=== PATIENT | male | born 1955 | race Caucasian/White ===

== ENCOUNTER 2023-12-07 13:10 | Emergency (ER) | payer MEDICARE, MEDICAID, SELFPAY ==
[2023-12-07 13:14] VITALS: BP 141/78; PULSE 86; RESP 16; TEMP 36.5; O2SAT 98; BMI 28.7
--- NOTE | 2023-12-07 13:22 | DI.RAD.S_ITS ---
PROCEDURE: XR SHOULDER RT MIN 2V INDICATIONS: fall/pain/swelling TECHNIQUE: 2 views of the shoulder were acquired. COMPARISON: [facility], CR, XR RIBS LT MIN 3V W CXR1V, 12/07/2023, 13:42. [facility], CR, XR HUMERUS RT 2V, 12/07/2023, 15:08. FINDINGS: Bones: There is a complex, comminuted fracture of the right proximal humeral shaft, with [id number] displacement. No shoulder dislocation is seen. The visualized ribs appear intact. Age-appropriate bony degenerative changes are seen. Soft tissues: Calcific tendinopathy can be seen. IMPRESSION: Right humeral shaft fracture. Dictated by: Nando Fields M.D. on 12/07/2023 at 15:38 Approved by: Nando Fields M.D. on 12/07/2023 at 15:39
--- NOTE | 2023-12-07 13:28 | DI.RAD.S_ITS ---
PROCEDURE: XR RIBS LT MIN 3V W CXR1V INDICATIONS: fall/pain TECHNIQUE: 3 views of the ribs were acquired, along with a single view chest. COMPARISON: [facility], CR, XR HUMERUS RT 2V, 12/07/2023, 15:08. [facility], CR, XR SHOULDER RT MIN 2V, 12/07/2023, 13:42. FINDINGS: Surgical changes and devices: The cardiac contours are within normal limits. The aorta demonstrates calcification and tortuosity. Bones and chest wall: No fractures or dislocations. No suspicious bony lesions. Age-appropriate bony degenerative changes are seen. Overlying soft tissues appear unremarkable. Lungs and pleura: No pleural effusions or pneumothorax. Lungs appear clear. Mediastinum: Mediastinal contours appear normal. Heart size is normal. IMPRESSION: No displaced rib fracture or pneumothorax. If there is strong clinical concern for chest trauma in this patient, please consider a follow-up chest CT with IV contrast for further evaluation. Dictated by: Nando Fields M.D. on 12/07/2023 at 15:37 Approved by: Nando Fields M.D. on 12/07/2023 at 15:38
--- NOTE | 2023-12-07 13:41 | ED_ITS ---
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 At 3:00 a.m. this morning he went to go the bathroom and so and had left a towel on the floor in his feet got tangled up in it. He fell forward posting his right arm outwards. He has not on any blood thinners. No loss of consciousness. Denies any other pain or injury. Patient is right-handed. Patient is retired. Patient placed in the sling. Shoulders to fingers exposed. No numbness tingling or weakness. No complaints of pain at the elbow forearm wrist or hand. Related Data Previous Rx's Medication Instructions Recorded ondansetron 4 mg disintegrating 4 mg PO Q8H PRN nausea and 12/07/23 tablet vomiting #20 tabs oxycodone-acetaminophen 5 mg-325 1 tab PO Q4-6H PRN pain #20 tabs 12/07/23 mg tablet (Percocet) Allergies Allergy/AdvReac Type Severity Reaction Status Date / Time No Known Drug Allergies Allergy Verified 12/07/23 13:20 Review of Systems Review of Systems Narrative: GENERAL: negative chills, fatigue, malaise, fever, sweats. HEENT: negative sinus pain, ear pain, sore throat RESPIRATORY: negative dyspnea, cough CARDIOVASCULAR: negative chest pain, palpitations GASTROINTESTINAL: negative nausea, vomiting, abdominal pain : negative dysuria, frequency, hematuria MUSCULOSKELETAL: Positive muscle or bony pain SKIN: negative rash, skin lesions NEUROLOGIC: negative weakness, numbness ROS Unobtainable: All systems reviewed & are unremarkable except as noted in HPI and below Patient History Social History Smoking Status: Never smoker Smoking Status: Never smoker alcohol intake frequency: 0-2 drinks per day Substance Use Type: does not use Exam Narrative Exam Narrative: GENERAL: in no distress, not toxic not dyspneic HEAD: Normocephalic. EYES: Pupils equal round ENT: Mucous membranes moist. NECK: Trachea midline. CARDIOVASCULAR: Regular rate and rhythm RESPIRATORY: Clear to auscultation. Breath sounds equal bilaterally. No wheezes, rales, or rhonchi. GASTROINTESTINAL: Abdomen soft, non-tender EXTREMITIES: No gross deformities. Examination right upper extremity. Diffuse tenderness of the right shoulder as well as proximal humerus. No gross deformity. No drop off. No bruising. Strong die caster and radial pulse brisk cap refills. Nontender elbow and forearm wrist and hand and fingers. Mild tenderness to the lateral ribs but no crepitus BACK: No flank tenderness. NEURO: AOx4. SKIN: Warm and dry PSYCH: Not anxious, is cooperative Initial Vital Signs Initial Vital Signs: Vital Signs Temperature 97.7 F 12/07/23 13:14 Pulse Rate 86 12/07/23 13:14 Respiratory Rate 16 12/07/23 13:14 Blood Pressure 141/78 H 12/07/23 13:14 Pulse Oximetry 98 12/07/23 13:14 Oxygen Delivery Method Room Air 12/07/23 13:14 Procedures Orthopedic Splinting/Casting Injury #1: Time of procedure: 15:37 Side: right Upper Extremity Injury Location: upper arm Upper Extremity Immobilizer: sling/shoulder immobilizer (Conway and sling) Post splinting neuro exam: intact Post splinting vascular exam: intact Placed by: Provider Additional Comments: Assisted by nurse Daryl Course Orders Ordered: Discontinued Medications Ondansetron HCl (Ondansetron 4 Mg Odt) 4 mg SL NOW ONE Stop: 12/07/23 13:39 Last Admin: 12/07/23 13:48 Dose: 4 mg Documented By: MICHELE Oxycodone/Acetaminophen (Oxycodone/Acetaminophen 5/325 Tablet) 2 tab PO NOW ONE Stop: 12/07/23 14:14 Last Admin: 12/07/23 14:16 Dose: 2 tab Documented By: MICHELE Vital Signs Vital signs: Vital Signs - 8 hr 12/07/23 13:14 Temperature 97.7 F Pulse Rate 86 Respiratory Rate 16 Blood Pressure 141/78 H Pulse Oximetry 98 Oxygen Delivery Method Room Air MDM - Extremity Injury (Upper) MDM Narrative Medical decision making narrative: 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 At 3:00 a.m. this morning he went to go the bathroom and so and had left a towel on the floor in his feet got tangled up in it. He fell forward posting his right arm outwards. He has not on any blood thinners. No loss of consciousness. Denies any other pain or injury. Patient is right-handed. Patient is retired. Patient placed in the sling. Shoulders to fingers exposed. No numbness tingling or weakness. No complaints of pain at the elbow forearm wrist or hand. Patient is on oxycodone at home. However he threw it up due to nausea from the pain. After history and exam x-ray right shoulder x-ray left rib with chest, Zofran, Percocet after nausea control MDM Medical records reviewed: No recent visit for this complaint Differential considered: Includes but not limited to shoulder fracture humeral fracture shoulder dislocation shoulder contusion rib fracture rib contusion chest wall strain Imaging studies independently reviewed: I did review with radiologist by phone. X-ray left rib with chest no acute finding X-ray right shoulder show a spiral fracture of the humerus X-ray right humerus Consultations: 3:03 p.m.. Spoke with Orthopedics,, dr antionette White, does agree to add humerus x-ray but would not change management facilitator. Patient can still be discharged home. Patient should be in over the top Conway brace with cuff and collar. She will see patient in the office. Treatments: Zofran Percocet Re-evaluations: Updated patient results. Follow up in the office with Dr. White, referral given. Pain is controlled. Patient is locomotive driver. Patient tolerated splinting very well. Return precautions reviewed. He desires discharge home 3:33 p.m.. at bedside. Pain controlled. Splint applied. Patient tolerated splinting. We do not have the cuff and collar as requested by Dr. White however we did have the Conway Discussion: Appropriate for discharge home exam is reassuring. Arm is neurovascularly intact. No signs of compartment syndrome. Arm is warm soft and pink. Strong radial pulse brisk cap refills light touch intact to deltoid arm forearm and fingers and thumb.. Return precautions reviewed. Orthopedics was contacted and consulted. He desires discharge home. is driving. Orthopedics was consulted and reviewed the x-rays. Diagnosis: Humeral fracture Discharge Plan Departure Patient Disposition: Home Clinical Impression: Humeral fracture Qualifiers: Encounter type: initial encounter Humerus Location: shaft Fracture type: closed Fracture morphology: unspecified fracture morphology Laterality: right Qualified Code(s): S42.301A - Unspecified fracture of shaft of humerus, right arm, initial encounter for closed fracture Instructions: Humeral Shaft Fracture Activity Restrictions/Additional Instructions: You have broken your upper arm. You have been placed in a splint. Please keep it in place until office appointment time. No driving operating machinery. Please call Dr. White, orthopedics office today for office appointment. She is expecting you. She was contacted today and she did review the x-ray images. Prescription for pain medication nausea medication has been provided for you. Return if worse if any questions or concerns. Prescriptions: New oxycodone-acetaminophen [Percocet] 5-325 mg tablet 1 tab PO Q4-6H PRN (Reason: pain) Qty: 20 0RF ondansetron 4 mg tablet,disintegrating 4 mg PO Q8H PRN (Reason: nausea and vomiting) Qty: 20 0RF Referrals: Miscellaneous,Doctor, [Primary Care Provider] - Antionette White MD [Physician] - Stand Alone Forms: Patient Portal/API
[2023-12-07] MEDS: ONDANSETRON 4 MG ODT SL (13:48)
--- NOTE | 2023-12-07 13:50 | PC.NURSE ---
Pt denied dizziness/lightheaded prior to fall at 0300. reports left rib pain and right upper arm/shoulder pain with difficulty moving his right arm. Placed in spling at triage. Pt requested do not touch me durring assessment.
[2023-12-07] MEDS: OXYCODONE/ACETAMINOPHEN 5/325 TABLET 2 TAB PO (14:16)
--- NOTE | 2023-12-07 14:56 | DI.RAD.S_ITS ---
PROCEDURE: XR HUMERUS RT 2V INDICATIONS: Fall/pain TECHNIQUE: 2 views of the humerus were acquired. COMPARISON: [facility], CR, XR SHOULDER RT MIN 2V, 12/07/2023, 13:42. [facility], CR, XR RIBS LT MIN 3V W CXR1V, 12/07/2023, 13:42. FINDINGS: Bones: There is a comminuted fracture of the right femoral shaft, with [id number] displacement. The visualized ribs appear intact. Underlying degenerative changes are seen. Soft tissues: No suspicious soft tissue calcifications. IMPRESSION: Right humeral shaft fracture. Dictated by: Nando Fields M.D. on 12/07/2023 at 15:41 Approved by: Nando Fields M.D. on 12/07/2023 at 15:42
[2023-12-07 15:46] VITALS: BP 168/78; PULSE 82; RESP 18; O2SAT 97
== END 2023-12-07 15:57 | disposition home or self-care (01) ==
PROVIDERS: Emergency Provider Emergency Medicine
DX: S42.301A Unspecified fracture of shaft of humerus, right arm, initial encounter for closed fracture (principal); R07.81 Pleurodynia; W18.30XA Fall on same level, unspecified, initial encounter
CPT/HCPCS: 71101; 73030; 73060; 99283; 99284

== ENCOUNTER → 2024-10-17 11:55 | Outpatient (CLI) | payer MEDICARE, MEDICAID, SELFPAY ==
--- NOTE | 2024-10-17 12:02 | DI.US.S_ITS ---
PROCEDURE: US RENAL COMPLETE INDICATIONS: GROSS HEMATURIA TECHNIQUE: Real-time scanning was performed of the kidneys and bladder, with image documentation. COMPARISON: None. FINDINGS: Kidneys: Kidneys are normal in size. Right kidney measures 11.2 cm long; left kidney measures 10.8 cm long. Right renal cortical thickness is 1.5 cm; left renal cortical thickness is 1.4 cm. Renal cortical echotexture is normal. No hydronephrosis or nephrolithiasis. No suspicious solid mass lesions. Bladder: Incompletely evaluated. The patient was not prepped. Bilateral ureteral jets are seen. Miscellaneous: No free pelvic fluid. Incidental note gallstones. Nondistended gallbladder. IMPRESSION: Incompletely evaluated urinary bladder. Normal renal morphology. Dictated by: Bushra Goodman M.D. on 10/17/2024 at 18:16 Approved by: Bushra Goodman M.D. on 10/17/2024 at 18:19
== END ==
PROVIDERS: PCP Hospitalist; Referring Provider Urology; Visit Provider Urology
DX: R31.0 Gross hematuria (principal)
CPT/HCPCS: 76770

== ENCOUNTER 2024-11-17 12:45 | Inpatient (IN) | payer MEDICARE, MEDICAID, SELFPAY ==
[2024-11-17] VITALS (15 sets, daily range): BP systolic 181–200; BP diastolic 87–118; PULSE 75–100; RESP 16–37; TEMP 36.5; O2SAT 90–94; BMI 31.4
--- NOTE | 2024-11-17 12:57 | DI.RAD.S_ITS ---
PROCEDURE: XR CHEST 1V INDICATIONS: Altered mental status TECHNIQUE: One view of the chest was acquired. COMPARISON: None. FINDINGS: Surgical changes and devices: None. Lungs and pleura: Lungs are clear. No pleural effusions or pneumothorax. Mediastinum: Mediastinal contours appear normal. Heart size is normal. Bones and chest wall: No suspicious bony lesions. Overlying soft tissues appear unremarkable. IMPRESSION: No acute cardiopulmonary abnormality is seen. Approved by: Christopher Adorno M.D. on 11/17/2024 at 12:26
--- NOTE | 2024-11-17 12:57 | DI.CT.S_ITS ---
PROCEDURE: CT HEAD/BRAIN WO CON INDICATIONS: Altered mental status TECHNIQUE: Noncontrast 4.5 mm thick angled axial sections acquired from the foramen magnum to the vertex, with coronal and sagittal reformats. For radiation dose reduction, the following was used: automated exposure control, adjustment of mA and/or kV according to patient size. COMPARISON: None. FINDINGS: Image quality: Diagnostic. CSF spaces: Basal cisterns are patent. No extra-axial fluid collections. Ventricles are normal in size and shape. Brain: No midline shift. No intracranial mass effect or hemorrhage. Topete- white matter interface is normal. Skull and face: Calvarium and visualized facial bones are intact, without suspicious lesions. Sinuses: Visualized sinuses and mastoids are clear. IMPRESSION: No acute intracranial pathology. Approved by: Christopher Adorno M.D. on 11/17/2024 at 12:58
--- NOTE | 2024-11-17 13:00 | ED.NEUROSD ---
HPI - Neuro Symptoms/Deficit General Chief Complaint: Neuro Symptoms/Deficit Stated Complaint: AMS Time Seen by Provider: 11/17/24 12:45 Source: patient Mode of arrival: EMS History of Present Illness HPI Narrative: 69 years old male with history of chronic back pain on oxycodone 10 mg every 3 hours came in today by an ambulance after his fiancee heard him screaming and found him with foaming at the mouth in the recliner. He could not remember what happened before that. The permanent noticed he was altered mental status with GCS of 13 and could be postictal. . He had no history of seizure. In the ED currently he moves both arms and legs, follows commands and answers question appropriately. He denied any headaches, nausea vomiting, chest pain, abdominal pain, fever, chills, cough, numbness weakness on 1 side of his body, facial droop, slurred speech, change in his vision, recent injury. He has been in acute distress for his low back pain during the ED stay. Later I did talk to his who reported that the patient was having whole-body seizure with frosting from his mouth last about 2-3 minutes with confusion after seizure. On Anticoagulants: No Related Data Home Medications ?Medication ?Instructions ?Recorded ?Confirmed atorvastatin 80 mg tablet 80 mg PO DAILY 11/17/24 11/17/24 omeprazole 20 mg capsule,delayed 20 mg PO DAILY 11/17/24 11/17/24 release oxycodone-acetaminophen 10 mg-325 1 tab PO Q3H PRN pain 11/17/24 11/17/24 mg tablet tamsulosin 0.4 mg capsule 0.8 mg PO DAILY 11/17/24 11/17/24 Allergies Allergy/AdvReac Type Severity Reaction Status Date / Time No Known Drug Allergies Allergy Verified 11/17/24 12:52 Review of Systems Review of Systems Narrative: Positive for altered mental status. Forming mouth and possible seizure. Negative for headaches, nausea vomiting, chest pain, abdominal pain, fever, chills, cough, numbness weakness on 1 side of his body, facial droop, slurred speech, change in his vision, recent injury. 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 Smoking Status: Current some day smoker substance use type: marijuana, opiates and painkillers during the past year weight has: remained stable Type(s) of exercise: independent ambulation alcohol intake frequency: 0-2 drinks per day Alcohol type: beer Exam Initial Vital Signs Initial Vital Signs: Vital Signs Temperature 97.7 F 11/17/24 12:52 Pulse Rate 83 11/17/24 12:52 Respiratory Rate 16 11/17/24 12:52 Blood Pressure 188/87 H 11/17/24 12:52 Pulse Oximetry 90 L 11/17/24 12:52 Oxygen Delivery Method Room Air, Non -Rebreather 11/17/24 12:52 Const General: cooperative, well developed and No acute distress HENMT HENMT Other: No sign of head injury. Eyes Pupils: PERRL EOM: EOM intact bilaterally Neck Neck: normal visual inspection and supple Resp Other: Clear to auscultation bilaterally without rhonchi or wheezing. No acute respiratory distress. Cardio Other: Normal S1-S2 without murmur. Regular rhythm. GI Other: Soft, nontender. No distention. No guarding or rebound tenderness. Back/Spine/Pelvis Other: No midline C-spine, thoracolumbar spine tenderness on palpation or step-off. Skin General: no rashes or lesions noted Neuro Other: Alert oriented x3. Strength 5/5 in both arms and legs. Normal facial movement, eye movement. Pupil was equal round reactive to light in both eyes. Extrem Other: No pedal edema in both legs. Course Course Additional Information: [id number], 2:40 p.m. discussed the case with neurologist [facility] and suggested to have the patient follow up with neurologist outpatient along with EEG, MRI and no driving for the next 6 months. Orders Ordered: ED Orders 11/18/24 06:05 Basic Metabolic Panel Routine Complete Blood Count AUTO DIFF Routine Troponin I Stat Acetaminophen (Acetaminophen 325 Mg Tablet) 650 mg PO Q6H CHARMAINE Last Admin: 11/18/24 05:55 Dose: 650 mg Documented By: Admin: 11/18/24 00:11 Dose: 650 mg Documented By: Admin: 11/17/24 19:09 Dose: 650 mg Documented By: TLS Aspirin (Aspirin Ec 81 Mg Tablet) 81 mg PO DAILY [facility] Last Admin: 11/18/24 08:36 Dose: 81 mg Documented By: HAYLEY Atorvastatin Calcium (Atorvastatin 20 Mg Tablet) 80 mg PO DAILY [facility] Last Admin: 11/18/24 08:36 Dose: 80 mg Documented By: SHANTANUV Diazepam (Diazepam 10 Mg/2 Ml Syringe) 2 mg IV Q2HR PRN PRN Reason: seizure Enoxaparin Sodium (Enoxaparin 40 Mg/0.4 Ml Syringe) 40 mg SUBCUT DAILY [facility] Last Admin: 11/18/24 08:36 Dose: 40 mg Documented By: SHANTANUV Hydromorphone HCl (Hydromorphone Hcl 0.5 Mg/0.5 Ml Syringe) 0.5 mg IV Q2H PRN PRN Reason: Pain, Severe (7-10) Last Admin: 11/18/24 08:52 Dose: 0.5 mg Documented By: Admin: 11/18/24 03:20 Dose: 0.5 mg Documented By: Admin: 11/17/24 22:53 Dose: 0.5 mg Documented By: RACHEL Ceftriaxone Sodium 1,000 mg/ (Sodium Chloride) 100 mls @ 200 mls/hr IV Q24H [facility] Last Infusion: 11/18/24 07:40 Dose: Infused Documented By: Admin: 11/18/24 06:30 Dose: 200 mls/hr Documented By: RACHEL Lisinopril (Lisinopril 20 Mg Tablet) 20 mg PO BID [facility] Last Admin: 11/18/24 08:36 Dose: 20 mg Documented By: Admin: 11/17/24 21:24 Dose: Not Given Documented By: RACHEL Methocarbamol (Methocarbamol 500 Mg Tablet) 750 mg PO Q6H [facility] Last Admin: 11/18/24 05:56 Dose: 750 mg Documented By: Admin: 11/18/24 00:11 Dose: 750 mg Documented By: RACHEL Naloxone HCl (Naloxone 0.4 Mg/Ml Vial) 0.2 mg IV Q2MIN PRN PRN Reason: Opiate Reversal Ondansetron HCl (Ondansetron 4 Mg/2 Ml Inj) 4 mg IV Q4HR PRN PRN Reason: Nausea And Vomiting Last Admin: 11/18/24 03:20 Dose: 4 mg Documented By: Admin: 11/17/24 23:00 Dose: 4 mg Documented By: RACHEL Oxycodone HCl (Oxycodone Ir 5 Mg Tablet) 5 mg PO Q3H PRN PRN Reason: Pain, Moderate (4-6) Last Admin: 11/17/24 19:52 Dose: 5 mg Documented By: Admin: 11/17/24 19:11 Dose: 5 mg Documented By: NEO Oxycodone HCl (Oxycodone Ir 10 Mg Tablet) 10 mg PO Q3HR PRN PRN Reason: Pain, Severe (7-10) Last Admin: 11/18/24 08:38 Dose: 10 mg Documented By: Admin: 11/18/24 05:56 Dose: 10 mg Documented By: Admin: 11/18/24 02:00 Dose: 10 mg Documented By: Admin: 11/17/24 22:05 Dose: 10 mg Documented By: RACHEL Pantoprazole Sodium (Pantoprazole Dr 20 Mg Tablet) 20 mg PO DAILY [facility] Last Admin: 11/18/24 08:36 Dose: 20 mg Documented By: HAYLEY Potassium Chloride (Potassium Chloride 20 Meq Tab) 40 meq PO Q6H [facility] Stop: 11/18/24 13:31 Last Admin: 11/18/24 08:35 Dose: 40 meq Documented By: HAYLEY Sodium Chloride (Sodium Chloride 0.9% Flush) 10 ml IV BID [facility] Last Admin: 11/18/24 08:36 Dose: 10 ml Documented By: HAYLEY Sodium Chloride (Sodium Chloride 0.9% Flush) 10 ml IV PRN PRN PRN Reason: Flush Tamsulosin HCl (Tamsulosin 0.4 Mg Capsule) 0.8 mg PO DAILY [facility] Last Admin: 11/18/24 08:36 Dose: 0.8 mg Documented By: HAYLEY Discontinued Medications Aspirin (Aspirin 81 Mg Chew Tab) 324 mg PO NOW ONE Stop: 11/17/24 17:54 Last Admin: 11/17/24 18:01 Dose: 324 mg Documented By: RAMIN Fentanyl (Fentanyl 100 Mcg/2 Ml Inj) 100 mcg IV NOW ONE Stop: 11/17/24 15:11 Last Admin: 11/17/24 15:19 Dose: 100 mcg Documented By: RAMIN Fentanyl (Fentanyl 100 Mcg/2 Ml Inj) 50 mcg IV NOW ONE Stop: 11/17/24 17:15 Fentanyl (Fentanyl 100 Mcg/2 Ml Inj) 100 mcg 1 mcg/kg (100 mcg) IV NOW ONE Stop: 11/17/24 17:16 Last Admin: 11/17/24 17:17 Dose: 100 mcg Documented By: MPO Hydromorphone HCl (Hydromorphone Hcl 0.5 Mg/0.5 Ml Syringe) 0.5 mg IV NOW ONE Stop: 11/17/24 14:10 Last Admin: 11/17/24 14:12 Dose: 0.5 mg Documented By: SB Sodium Chloride (Normal Saline 0.9%) 1,000 mls @ 1,000 mls/hr IV BOLUS ONE Stop: 11/17/24 15:40 Last Infusion: 11/17/24 15:44 Dose: Infused Documented By: Admin: 11/17/24 14:57 Dose: 1,000 mls/hr Documented By: MPO Ceftriaxone Sodium 2,000 mg/ (Sodium Chloride) 100 mls @ 200 mls/hr IV NOW ONE Stop: 11/17/24 17:27 Last Infusion: 11/17/24 18:37 Dose: Infused Documented By: Admin: 11/17/24 17:58 Dose: 200 mls/hr Documented By: MPO Heparin Sodium/Dextrose (Heparin Drip) 25,000 unit in 500 mls @ 23.797 mls/hr IV CONT CHARMAINE; Protocol Last Admin: 11/17/24 18:06 Dose: Not Given Documented By: MPO Ketorolac Tromethamine (Ketorolac 30 Mg/Ml Vial) 15 mg IV NOW ONE Stop: 11/17/24 14:42 Last Admin: 11/17/24 14:57 Dose: 15 mg Documented By: RAMIN Lidocaine (Lidocaine 5% Patch) 1 each TOP NOW ONE Stop: 11/17/24 19:40 Last Admin: 11/17/24 19:53 Dose: 1 each Documented By: TLS Lisinopril (Lisinopril 20 Mg Tablet) 20 mg PO NOW ONE Stop: 11/17/24 18:12 Last Admin: 11/17/24 19:10 Dose: 20 mg Documented By: TLS Lorazepam (Lorazepam 2 Mg/Ml Inj) 2 mg IV PRN PRN PRN Reason: Seizure Activity Lorazepam (Lorazepam 2 Mg/Ml Inj) 1 mg IV NOW ONE Stop: 11/17/24 22:40 Last Admin: 11/17/24 22:58 Dose: Not Given Documented By: RACHEL Lorazepam (Lorazepam 1 Mg Tablet) 1 mg PO NOW ONE Stop: 11/17/24 22:50 Last Admin: 11/17/24 22:57 Dose: 1 mg Documented By: RACHEL Methocarbamol (Methocarbamol 500 Mg Tablet) 750 mg PO QID CHARMAINE Last Admin: 11/17/24 19:09 Dose: 750 mg Documented By: NEO Oxycodone HCl (Oxycodone Ir 5 Mg Tablet) 5 mg PO NOW ONE Stop: 11/17/24 12:59 Last Admin: 11/17/24 13:05 Dose: 5 mg Documented By: RAMIN Oxycodone/Acetaminophen (Oxycodone/Acetaminophen 5/325 Tablet) 1 tab PO NOW ONE Stop: 11/17/24 14:20 Last Admin: 11/17/24 14:22 Dose: 1 tab Documented By: RAMIN Vital Signs Vital signs: Vital Signs - 8 hr 11/17/24 12:52 11/17/24 12:53 11/17/24 12:53 Temperature 97.7 F Pulse Rate 83 85 Respiratory Rate 16 22 Blood Pressure 188/87 H 188/87 H Pulse Oximetry 90 L Oxygen Delivery Method Room Air Non -Rebreather 11/17/24 13:00 11/17/24 13:00 11/17/24 13:30 Temperature Pulse Rate 80 75 Respiratory Rate 19 19 Blood Pressure 181/89 H Pulse Oximetry 91 91 Oxygen Delivery Method 11/17/24 14:00 11/17/24 14:30 11/17/24 15:00 Temperature Pulse Rate 93 H 83 100 H Respiratory Rate 25 H 22 29 H Blood Pressure Pulse Oximetry 92 93 92 Oxygen Delivery Method 11/17/24 15:30 11/17/24 16:00 Temperature Pulse Rate 94 H 85 Respiratory Rate 37 H 19 Blood Pressure Pulse Oximetry 94 Oxygen Delivery Method MDM - Neuro Symptoms/Deficit Lab Data 11/18/24 06:05 11/18/24 06:05 Labs: Lab Results 11/17/24 11/17/24 11/17/24 Range/Units 12:51 13:33 14:08 WBC 7.4 (4.5-11.0) X10^3/uL RBC 3.57 L (4.5-5.9) X10^6/uL Hgb 12.4 L (13.5-17.5) g/dL Hct 35.7 L (41-53) % MCV 99.9 (80-100) fL MCH 34.8 H (26-34) PG MCHC 34.8 (30-36) % RDW 12.4 (11.6-14.8) % Plt Count 283 (150-400) X10^3/uL Neut % (Auto) 70.9 (50-75) % Lymph % (Auto) 21.9 L (25-40) % Dixie % (Auto) 6.2 (3-14) % Eos % (Auto) 0.5 L (2-4) % Baso % (Auto) 0.5 (0-2) % Neut # (Auto) 5300 (0377-0248) /uL Lymph # (Auto) 1600 (7492-7376) /uL Dixie # (Auto) 500 (0-900) /uL Eos # (Auto) 0 (0-450) /uL Baso # (Auto) 0 (0-100) /uL PT 11.3 (9.4-12.5) SECONDS INR 1.0 (0.9-1.3) APTT 27 (25.1-36.5) SECONDS Sodium 133 L (137-145) mmol/L Potassium 4.1 (3.4-5.1) mmol/L Chloride 104 (98-107) mmol/L Carbon Dioxide 18 L (22-32) mmol/L BUN 10 (9-20) mg/dL Creatinine 0.70 (0.66-1.25) mg/dL Estimated GFR > 60 (>60) mL/min BUN/Creatinine Ratio 14.3 (6-22) Glucose 156 H (70-99) mg/dL Lactate 2.7 H (0.7-2.1) mmol/L Calcium 9.4 (8.4-10.2) mg/dL Total Bilirubin 0.8 (0.2-1.3) mg/dL AST 47 (17-59) IU/L ALT 28 (<50) IU/L Alkaline Phosphatase 94 (38-126) U/L Ammonia < 9 L (9-30) umol/L Troponin I < 0.012 (0.01-0.034) ng/mL Total Protein 8.0 (6.3-8.2) g/dL Albumin 4.6 (3.5-5.0) g/dL Globulin 3.4 (1.7-4.1) g/dL Albumin/Globulin Ratio 1.4 (1.0-2.8) TSH 1.00 (0.47-4.68) uIU/mL Prolactin 19.9 H (3.7-17.9) ng/mL Urine Color Yellow Urine Appearance Slightly cloudy Urine pH 6.0 (4.5-8.0) Ur Specific Anderson 1.015 (1.000-1.035) Urine Protein Negative (Negative) Urine Glucose (UA) Negative (Negative) g/dL Urine Ketones Negative (NEGATIVE) Urine Occult Blood 1+ H (Negative) Urine Nitrate Positive H (Negative) Urine Bilirubin Negative (NEGATIVE) Urine Urobilinogen 0.2 (0.2) E.U./dL Ur Leukocyte Esterase 1+ H (NEGATIVE) Urine RBC 1-5/hpf (0-5/HPF) Urine WBC 10-30/hpf H (0-5/HPF) Ur Squamous Epith Cells 0-1 /hpf (0-5/HPF) Urine Bacteria Few (2-10) H (None) Ur Culture Indicated? TNP Micro UA Comment Vol Urine Centrifuged 10ml (spun) Salicylates < 1.0 (<20) mg/dL U Opiates 300ng/mL cut Negative (Negative) Ur Oxycodone Screen Positive H (Negative) Urine Methadone Screen Negative (Negative) Acetaminophen < 10 (10-30) ug/mL Ur Barbiturates Screen Negative (Negative) U Tricyclic Antidepress Negative (Negative) Ur Phencyclidine Scrn Negative (Negative) Ur Amphetamines Screen Negative (Negative) U Methamphetamines Scrn Negative (Negative) Ur MDMA Scrn (Ecstasy) Negative (Negative) U Benzodiazepines Scrn Negative (Negative) Urine Cocaine Screen Negative (Negative) U Marijuana (THC) Screen Positive H (Negative) Urine Specific Anderson (Normal) Ethyl Alcohol < 10 (<10) mg/dL Ur Creatinine (Normal) 11/17/24 11/17/24 11/17/24 Range/Units 14:08 14:51 17:05 WBC (4.5-11.0) X10^3/uL RBC (4.5-5.9) X10^6/uL Hgb (13.5-17.5) g/dL Hct (41-53) % MCV (80-100) fL MCH (26-34) PG MCHC (30-36) % RDW (11.6-14.8) % Plt Count (150-400) X10^3/uL Neut % (Auto) (50-75) % Lymph % (Auto) (25-40) % Dixie % (Auto) (3-14) % Eos % (Auto) (2-4) % Baso % (Auto) (0-2) % Neut # (Auto) (0442-2469) /uL Lymph # (Auto) (6397-7237) /uL Dixie # (Auto) (0-900) /uL Eos # (Auto) (0-450) /uL Baso # (Auto) (0-100) /uL PT (9.4-12.5) SECONDS INR (0.9-1.3) APTT (25.1-36.5) SECONDS Sodium (137-145) mmol/L Potassium (3.4-5.1) mmol/L Chloride (98-107) mmol/L Carbon Dioxide (22-32) mmol/L BUN (9-20) mg/dL Creatinine (0.66-1.25) mg/dL Estimated GFR (>60) mL/min BUN/Creatinine Ratio (6-22) Glucose (70-99) mg/dL Lactate 2.1 (0.7-2.1) mmol/L Calcium (8.4-10.2) mg/dL Total Bilirubin (0.2-1.3) mg/dL AST (17-59) IU/L ALT (<50) IU/L Alkaline Phosphatase (38-126) U/L Ammonia (9-30) umol/L Troponin I 0.051 H (0.01-0.034) ng/mL Total Protein (6.3-8.2) g/dL Albumin (3.5-5.0) g/dL Globulin (1.7-4.1) g/dL Albumin/Globulin Ratio (1.0-2.8) TSH (0.47-4.68) uIU/mL Prolactin (3.7-17.9) ng/mL Urine Color Urine Appearance Urine pH Normal (4.5-8.0) Ur Specific Anderson (1.000-1.035) Urine Protein (Negative) Urine Glucose (UA) (Negative) g/dL Urine Ketones (NEGATIVE) Urine Occult Blood (Negative) Urine Nitrate (Negative) Urine Bilirubin (NEGATIVE) Urine Urobilinogen (0.2) E.U./dL Ur Leukocyte Esterase (NEGATIVE) Urine RBC (0-5/HPF) Urine WBC (0-5/HPF) Ur Squamous Epith Cells (0-5/HPF) Urine Bacteria (None) Ur Culture Indicated? Micro UA Comment Vol Urine Centrifuged Salicylates (<20) mg/dL U Opiates 300ng/mL cut (Negative) Ur Oxycodone Screen (Negative) Urine Methadone Screen (Negative) Acetaminophen (10-30) ug/mL Ur Barbiturates Screen (Negative) U Tricyclic Antidepress (Negative) Ur Phencyclidine Scrn (Negative) Ur Amphetamines Screen (Negative) U Methamphetamines Scrn (Negative) Ur MDMA Scrn (Ecstasy) (Negative) U Benzodiazepines Scrn (Negative) Urine Cocaine Screen (Negative) U Marijuana (THC) Screen (Negative) Urine Specific Anderson Normal (Normal) Ethyl Alcohol (<10) mg/dL Ur Creatinine Normal (Normal) Urine Dip Bedside Urine Glucose Negative Bedside Urine Bilirubin - Negative Bedside Urine Ketone - Negative Urine Specific Anderson 1.015 Bedside Urine Occult Blood + Bedside Urine pH 6.0 Bedside Urine Protein +/- 15 Bedside Urine Urobilinogen - Negative Bedside Urine Nitrite - Negative Bedside Urine Leukocytes ++ [address] scan - head: Radiologist's Impression: PROCEDURE: CT HEAD/BRAIN WO CON INDICATIONS: Altered mental status TECHNIQUE: Noncontrast 4.5 mm thick angled axial sections acquired from the foramen magnum to the vertex, with coronal and sagittal reformats. For radiation dose reduction, the following was used: automated exposure control, adjustment of mA and/or kV according to patient size. COMPARISON: None. FINDINGS: Image quality: Diagnostic. CSF spaces: Basal cisterns are patent. No extra-axial fluid collections. Ventricles are normal in size and shape. Brain: No midline shift. No intracranial mass effect or hemorrhage. Topete-white matter interface is normal. Skull and face: Calvarium and visualized facial bones are intact, without suspicious lesions. Sinuses: Visualized sinuses and mastoids are clear. IMPRESSION: No acute intracranial pathology. Approved by: Christopher Adorno M.D. on 11/17/2024 at 12:58 Chest x-ray: Radiologist's Impression: PROCEDURE: XR CHEST 1V INDICATIONS: Altered mental status TECHNIQUE: One view of the chest was acquired. COMPARISON: None. FINDINGS: Surgical changes and devices: None. Lungs and pleura: Lungs are clear. No pleural effusions or pneumothorax. Mediastinum: Mediastinal contours appear normal. Heart size is normal. Bones and chest wall: No suspicious bony lesions. Overlying soft tissues appear unremarkable. IMPRESSION: No acute cardiopulmonary abnormality is seen. Approved by: Christopher Adorno M.D. on 11/17/2024 at 12:26 CT scan - abdomen/pelvis: Radiologist's Impression: PROCEDURE: CT ABDOMEN PELVIS W CON INDICATIONS: Worsening low back pain after seizure. TECHNIQUE: After the administration of intravenous contrast, axial sections acquired from the lung bases to the pubic symphysis. Coronal and sagittal reformats were performed. For radiation dose reduction, the following was used: automated exposure control, adjustment of mA and/or kV according to patient size. COMPARISON: None. FINDINGS: Image quality: Diagnostic. Lower Chest: No significant findings. ABDOMEN: Liver: No solid mass. Gallbladder: Cholelithiasis. No pericholecystic inflammatory change. Biliary ducts: No biliary dilation. Pancreas: No ductal dilation. Spleen: Size is within normal limits. Adrenal Glands: No adrenal nodules. Kidneys and Ureters: No hydronephrosis. No solid mass. No complex renal cystic lesion which requires follow up. Stomach and Bowel: Normal colonic caliber, without significant wall thickening. Peritoneum: No abnormal intraperitoneal fluid. No free air. Ventral Wall: No significant ventral hernia. Abdominal Nodes: No retroperitoneal or mesenteric adenopathy by size criteria. Vessels: Aorta and inferior vena cava are normal in size. PELVIS: Pelvic Organs: Unremarkable. Bladder: No bladder wall thickening, accounting for underdistention. Pelvic Nodes: No enlarged lymph nodes. Miscellaneous: Bilateral inguinal hernia(s) contain fat without bowel involvement. Bones: L1 compression fracture with 50% height loss and retropulsed fracture fragment resulting in [id number] central stenosis. Degenerative disc disease and arthropathy results in moderate central stenosis L4-5 IMPRESSION: L1 compression fracture, uncertain age but probably acute Cholelithiasis Approved by: Christopher Adorno M.D. on 11/17/2024 at 15:58 CT lumbar spine: Radiologist's Impression: ROCEDURE: CT LUMBAR SPINE WO CON INDICATIONS: CT scan abdomen and pelvis show L1 compression fracture TECHNIQUE: CT lumbar spine was reconstructed from concurrent CT abdomen and pelvis study and submitted in multiple planes. No additional radiation utilized. COMPARISON: None. FINDINGS: L1 wedge-shaped compression fracture with 50% height loss and retropulsed fracture fragment results in [id number] central stenosis at the T12-L1 level. No foraminal stenosis. Disc space narrowing and degenerative endplate changes noted in the lower lumbar spine. Moderate central and bilateral foraminal stenosis present at L4-5 and mild central with severe bilateral foraminal stenosis at L5-S1 IMPRESSION: L1 compression fracture with retropulsed fracture fragment and mild to moderate central stenosis ECG Data Interpretation: EKG shows normal sinus rhythm at 72 beats per minute without ischemic ST-T changes with PAC. 2nd EKG showed normal sinus rhythm at rate 87 beats per minute without ischemic ST-T changes. [facility] Narrative Medical decision making narrative: 11/17/2024, 5: 17 p.m., discussed the case with our orthopedist on-call, Dr. White recommended dedicated CT scan lumbar spine send a CT scan abdomen and pelvis show L1 compression fracture 50% with retropulsed fracture fragment causing [id number] central stenosis. 11/17/2024 5:59 p.m. I discussed the case with our canopy stringer on-call Dr. Finley recommended aspirin, lisinopril 20 mg twice a day, admission, serial troponin, echocardiogram by the canopy stringer. 11/17/2024, 6:04 p.m. I discussed the case with Dr. Whiet, orthopedist agree that the patient will be admitted to the hospital and he will do the consult and put him on the brace. 11/17/2024, 6:12 p.m. I discussed the case with the hospitalist, Dr. Olguin and the patient was accepted to the hospital. 69 years old male was brought in by ambulance after witnessed seizure by his and complaint of low back pain require a lot of pain medication during the ED stay. He denied any chest pain. His CT scan abdomen and pelvis and lumbar spine showed L1 compression fracture. His 2nd troponin went up to 0.051. His CV exam, lung exam, abdominal exam were normal. Normal sensation and strength in both arms and legs. No focal deficit. His CBC showed hemoglobin 12.4 and no leukocytosis. His PT INR PTT were normal. His sodium 133 otherwise normal CMP. His prolactin and lactate was elevated likely secondary to seizure. His ammonia was normal. His UA show UTI and was given Rocephin IV in the ED. his urine drug screen positive for oxycodone, marijuana. Critical Care Time Critical Care Time Attestation: I spent at least 45 minute critical care time for this patient. Discharge Plan Departure Patient Disposition: Admitted As Inpatient Clinical Impression: Seizure, Closed L1 vertebral fracture, Elevated troponin, Low back pain, UTI (urinary tract infection) Admit Date/Time: 11/17/24 18:14 Admit Provider: Leslie Olguin
[2024-11-17] MEDS: OXYCODONE IR 5 MG TABLET PO ×3 (13:05→19:52)
[2024-11-17 13:14] LABS: Add Manual Diff / Slide Review NO; Hematocrit 35.7 % (41-53); Hemoglobin 12.4 g/dL (13.5-17.5); Lymphocytes Absolute Auto 1600 /uL (1100-4500); Mean Corpuscular HGB Conc 34.8 % (30-36); Mean Corpuscular Hemoglobin 34.8 PG (26-34); Mean Corpuscular Volume 99.9 fL (80-100); Platelet Count 283 X10^3/uL (150-400)
[2024-11-17 13:15] LABS: INR 1.0 (0.9-1.3); Prothrombin Time 11.3 SECONDS (9.4-12.5)
[2024-11-17 13:18] LABS: Lactate (Lactic Acid) 2.7 mmol/L (0.7-2.1); PTT Partial Thromboplastin Tim 27 SECONDS (25.1-36.5)
--- NOTE | 2024-11-17 13:19 | PC.NURSE ---
Pt arrived to ED today because via [facility] after seizure-like activity and AMS. EMS reports that pt's girlfriend heard weird noises coming from the other room. Girlfriend went to the other room and found pt on the floor and described to EMS pt's seizure-like activity with tonic-clinic movement. EMS reports that pt confused on scene and post ictal and pt incontinent of urine. Pt arrived to dept a&ox4 but states that he feels very tired. Pt reports that he does not remember event but when he woke up there were people standing around him. Pt remains a&ox4. Doctor at bedside during triage and seizure pads placed on bed with suction at bedside.
[2024-11-17 13:20] LABS: Acetaminophen < 10 ug/mL (10-30); Alanine Aminotransferase 28 IU/L (<50); Albumin 4.6 g/dL (3.5-5.0); Albumin Globulin Ratio 1.4 (1.0-2.8); Alkaline Phosphatase 94 U/L (38-126); Blood Urea Nitrogen 10 mg/dL (9-20); Calcium 9.4 mg/dL (8.4-10.2); Carbon Dioxide 18 mmol/L (22-32); Chloride 104 mmol/L (98-107); Estimated Glomerular Filt Rate > 60 mL/min (>60); Ethanol (ETOH) < 10 mg/dL (<10); Globulin 3.4 g/dL (1.7-4.1); Glucose 156 mg/dL (70-99); HEMOLYSIS < 15 (0-50); Potassium 4.1 mmol/L (3.4-5.1); Salicylate < 1.0 mg/dL (<20); Sodium 133 mmol/L (137-145); Total Protein 8.0 g/dL (6.3-8.2)
--- NOTE | 2024-11-17 13:26 | EKG_ITS ---
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
[2024-11-17 13:53] LABS: Thyroid Stimulating Hormone 1.00 uIU/mL (0.47-4.68)
[2024-11-17 13:54] LABS: Ammonia (NH3) < 9 umol/L (9-30)
[2024-11-17] MEDS: OXYCODONE/ACETAMINOPHEN 5/325 TABLET 1 TAB PO (14:22)
[2024-11-17 14:25] LABS: Bilirubin Urine UA NEGATIVE (NEGATIVE); Color Urine UA YELLOW; Glucose Urine UA NEGATIVE (Negative); Ketones Urine UA NEGATIVE (NEGATIVE); Leukocyte Esterase Urine UA 1+ (NEGATIVE); Nitrite Urine UA POSITIVE (Negative); Occult Blood Urine UA 1+ (Negative); Protein Urine UA NEGATIVE (Negative); Specific Gravity Urine UA 1.015 (1.000-1.035); Urobilinogen Urine UA 0.2 E.U./dL (0.2); pH Urine UA 6.0 (4.5-8.0)
[2024-11-17 14:26] LABS: Appearance Urine UA Slightly Cloudy
[2024-11-17 14:36] LABS: Ur Creatinine Normal (Normal); Ur Specific Gravity Normal (Normal); Urine MDMA Negative (Negative); Urine Methamphetamines Negative (Negative); Urine THC Positive (Negative); Urine Tricyclic Antidepressant Negative (Negative); Urine pH Normal (Normal)
--- NOTE | 2024-11-17 14:40 | PC.NURSE ---
Pt c/o 12/01 intense back pain. States that he has chronic back pain but it is worse today. Repositioned pt in bed and discussed non-pharmacological methods for pain relief. Pt encouraged to call for assistance when trying to get out of bed and for repositioning as needed. Seizure precautions remain in place. MD aware of pt status. A&Ox4
--- NOTE | 2024-11-17 14:41 | DI.CT.S_ITS ---
PROCEDURE: CT ABDOMEN PELVIS W CON INDICATIONS: Worsening low back pain after seizure. TECHNIQUE: After the administration of intravenous contrast, axial sections acquired from the lung bases to the pubic symphysis. Coronal and sagittal reformats were performed. For radiation dose reduction, the following was used: automated exposure control, adjustment of mA and/or kV according to patient size. COMPARISON: None. FINDINGS: Image quality: Diagnostic. Lower Chest: No significant findings. ABDOMEN: Liver: No solid mass. Gallbladder: Cholelithiasis. No pericholecystic inflammatory change. Biliary ducts: No biliary dilation. Pancreas: No ductal dilation. Spleen: Size is within normal limits. Adrenal Glands: No adrenal nodules. Kidneys and Ureters: No hydronephrosis. No solid mass. No complex renal cystic lesion which requires follow up. Stomach and Bowel: Normal colonic caliber, without significant wall thickening. Peritoneum: No abnormal intraperitoneal fluid. No free air. Ventral Wall: No significant ventral hernia. Abdominal Nodes: No retroperitoneal or mesenteric adenopathy by size criteria. Vessels: Aorta and inferior vena cava are normal in size. PELVIS: Pelvic Organs: Unremarkable. Bladder: No bladder wall thickening, accounting for underdistention. Pelvic Nodes: No enlarged lymph nodes. Miscellaneous: Bilateral inguinal hernia(s) contain fat without bowel involvement. Bones: L1 compression fracture with 50% height loss and retropulsed fracture fragment resulting in [id number] central stenosis. Degenerative disc disease and arthropathy results in moderate central stenosis L4-5 IMPRESSION: L1 compression fracture, uncertain age but probably acute Cholelithiasis Approved by: Christopher Adorno M.D. on 11/17/2024 at 15:58
[2024-11-17 14:44] LABS: Reflexed Lactate in 2 Hours Y
[2024-11-17] MEDS: KETOROLAC 30 MG/ML VIAL 15 MG IV (14:57)
[2024-11-17] MEDS: SODIUM CHLORIDE 0.9% 1,000 ML 1000 ML IV (14:57)
[2024-11-17 15:13] LABS: Lactate 2HR (Lactic Acid Rflx) 2.1 mmol/L (0.7-2.1)
[2024-11-17] MEDS: fentaNYL 100 MCG/2 ML INJ IV ×2 (15:19→17:17)
--- NOTE | 2024-11-17 16:22 | PC.NURSE ---
Pt states that he is still feeling moderate pain and spasm. MD notified.
--- NOTE | 2024-11-17 17:13 | DI.CT.S_ITS ---
PROCEDURE: CT LUMBAR SPINE WO CON INDICATIONS: CT scan abdomen and pelvis show L1 compression fracture TECHNIQUE: CT lumbar spine was reconstructed from concurrent CT abdomen and pelvis study and submitted in multiple planes. No additional radiation utilized. COMPARISON: None. FINDINGS: L1 wedge-shaped compression fracture with 50% height loss and retropulsed fracture fragment results in [id number] central stenosis at the T12-L1 level. No foraminal stenosis. Disc space narrowing and degenerative endplate changes noted in the lower lumbar spine. Moderate central and bilateral foraminal stenosis present at L4-5 and mild central with severe bilateral foraminal stenosis at L5-S1 IMPRESSION: L1 compression fracture with retropulsed fracture fragment and mild to moderate central stenosis Approved by: Christopher Adorno M.D. on 11/17/2024 at 16:50
[2024-11-17 17:36] LABS: Troponin I 0.051 ng/mL (0.01-0.034)
[2024-11-17 17:36] LABS: Troponin I < 0.012 ng/mL (0.01-0.034)
[2024-11-17] MEDS: cefTRIAXone 2,000 MG in SODIUM CHLORIDE 0.9% 100 ML 200 MG IV (17:58)
--- NOTE | 2024-11-17 17:58 | EKG_ITS ---
[place] [id number] [place] [id number] Test Date: 2024-11-17 Pat Name: Anurag Justice Department: [facility] Room: Gender: Male [employer]curity Officer: : 1955 Requested By: Order Number: [id number] Reading MD: Nicolás Nance Measurements Intervals [place] Rate: 87 P: 49 VT: 178 QRS: -17 QRSD: 94 T: 33 QT: 392 QTc: 471 Interpretive Statements Sinus rhythm with premature atrial complexes Minimal voltage criteria for LVH, may be normal variant ( R in aVL ) Cannot rule out Anterior infarct , age undetermined Electronically Signed On 11-29-2024 8:45:49 PDT by Nicolás Nance
[2024-11-17] MEDS: ASPIRIN 81 MG CHEW TAB 324 MG PO (18:01)
--- NOTE | 2024-11-17 18:15 | DI.ECHO.S_ITS ---
[facility] : : [address] : : [place] : : [id number] : : Phone: [phone] Echocardiogram Report + + :Name: JES CASTAÑEDA Study Date: 11/18/2024 Height: 70 in : :[facility] ReadingLocation: Weight: 218 lb : : Gender: Male BSA: 2.2 m2 : :: 1955 Age: 69 yrs BP: 143/66 mmHg: :Reason For Study: ELEVATED TROPONIN : :Ordering Physician: JENIFFER, : :RACHID Performed By: Patrizia Martin : :Referring: RACHID SWIFT : + + Interpretation Summary The left ventricle is normal in size and wall thickness. Left ventricular systolic function appears normal without focal wall motion abnormalities. The ejection fraction is estimated to be 55-60%. Grade I diastolic dysfunction with normal left atrial pressure. The right ventricle is normal in size and function. The right ventricular systolic pressure is estimated to be at least 45 mmHg based on an estimated right atrial pressure of 3 mm Hg. The left atrial size is normal. There is mild mitral regurgitation. There is mild to moderate tricuspid regurgitation. The ascending aorta is mild-moderately enlarged. Procedure: A two-dimensional transthoracic echocardiogram with color flow and Doppler was performed. The study quality was technically adequate. There is no prior echocardiogram noted for this patient. The patient was in sinus rhythm with heart rates between 66-76 bpm during the exam. Left Ventricle: The left ventricle is normal in size and wall thickness. Left ventricular systolic function appears normal without focal wall motion abnormalities. The ejection fraction is estimated to be 55-60%. Grade I diastolic dysfunction with normal left atrial pressure. Right Ventricle: The right ventricle is normal in size and function. Atria: The left atrial size is normal. Right atrial size is normal. There is no Doppler evidence for an interatrial shunt. Mitral Valve: There is mild mitral annular calcification. The mitral valve leaflets appear to open well. There is mild mitral regurgitation. Aortic Valve: The aortic valve is trileaflet. The aortic valve opens well. There is no aortic valve stenosis. No aortic regurgitation is present. Tricuspid Valve: The tricuspid valve leaflets are thin and pliable. There is mild to moderate tricuspid regurgitation. The right ventricular systolic pressure is estimated to be at least 45 mmHg based on an estimated right atrial pressure of 3 mm Hg. Pulmonic Valve: The pulmonic valve leaflets are thin and pliable; valve motion is normal. There is mild pulmonic regurgitation. Great Vessels: The aortic root is normal size. The ascending aorta is mild- moderately enlarged. The IVC is of normal diameter and collapses greater than 50% with a sniff. This suggests a low right atrial pressure of 3 mm Hg. Pericardium/ Pleura There is no pericardial effusion. There is no pleural effusion. MMode/2D Measurements & Calculations LVIDd: 4.8 cm LVOT diam: 2.2 cm LVIDs: 3.5 cm Ao root diam: 4.0 cm FS: 27.7 % asc Aorta Diam: 4.4 cm EPSS: 0.79 cm Ao Arch Diam (Prox Trans): 3.0 cm IVSd: 0.81 cm LVPWd: 0.72 cm LV collier. diameter/BSA (cm/m^2): 2.2 LV sys. diameter/BSA (cm/m^2): 1.6 LA A2 area: 18.3 cm2 RA long axis: 5.0 cm LA A4 area: 14.2 cm2 RA area: 16.1 cm2 LA length (vol): 5.3 cm RA vol: 43.9 ml LA vol: 41.4 ml RA : 20.3 ml/m2 LA vol index: 19.1 ml/m2 IVC diam: 1.1 cm RVD1 (basal): 3.9 cm TAPSE: 2.6 cm Doppler Measurements & Calculations Ao V2 max: 158.8 cm/sec LVOT Max Jordy: 106.2 cm/sec Ao V2 mean: 112.6 cm/sec LV V1 max P.5 mmHg Ao max P.1 mmHg LV V1 VTI: 18.6 cm Ao mean P.6 mmHg DIONI(I,D): 2.7 cm2 Ao V2 VTI: 27.2 cm DIONI(V,D): 2.7 cm2 sev ratio: 0.68 DIONI indexed to BSA (cm^2/m^2): 1.3 MV E max jordy: 45.7 cm/sec TR max jordy: 322.8 cm/sec MV A max jordy: 75.3 cm/sec TR max P.7 mmHg MV E/A: 0.61 PA V2 max: 116.4 cm/sec Med Peak E' Jordy: 9.1 cm/sec PA V2 mean: 81.7 cm/sec E/E' med: 5.0 PA mean P.0 mmHg Lat Peak E' Jordy: 12.5 cm/sec PA pr(Accel): 35.3 mmHg E/E' lat: 3.7 E/e' average: 4.4 MV dec time: 0.17 sec SV(LVOT): 73.9 ml Reading Physician:08:29 AM
[2024-11-17] MEDS: ACETAMINOPHEN 325 MG TABLET 650 MG PO (19:09)
[2024-11-17] MEDS: LIDOCAINE 5% PATCH 1 EACH TOP (19:53)
[2024-11-17] MEDS: OXYCODONE IR 10 MG TABLET PO (22:05)
--- NOTE | 2024-11-17 22:41 | PM.HP.1 ---
History of Present Illness History of Present Illness Date Patient Seen: 11/17/24 Time Patient Seen: 22:41 Date of Onset of Symptoms: 11/17/24 Chief complaint: AMS Narrative: This is a 69-year-old gentleman with chronic low back pain who takes oxycodone 10 mg up to every 3 hours and is on a pain contract with [facility] from [facility]. He had a seizure today. He was brought to the emergency room he was evaluated he was noted to have a seizure and an acute lumbar spine fracture. He denies any new numbness or tingling but he notes incapacitating back pain which is markedly worsened in comparison to previously. He is uncertain if he had a fall. He does not note any new numbness or tingling in his feet or in his perineum. [facility] Social History household members: spouse Smoking Status: Current some day smoker Meds Home Medications and Allergies Home Medications ?Medication ?Instructions ?Recorded ?Confirmed ?Type atorvastatin 80 mg tablet 80 mg PO DAILY 11/17/24 11/17/24 History omeprazole 20 mg capsule,delayed 20 mg PO DAILY 11/17/24 11/17/24 History release oxycodone-acetaminophen 10 mg-325 1 tab PO Q3H PRN pain 11/17/24 11/17/24 History mg tablet tamsulosin 0.4 mg capsule 0.8 mg PO DAILY 11/17/24 11/17/24 History Allergies Allergy/AdvReac Type Severity Reaction Status Date / Time No Known Drug Allergies Allergy Verified 11/17/24 12:52 Review of Systems Review of Systems Narrative: He denies any recent fever chills, he has not noted any new urological symptoms, Exam Vital Signs (past 8 hours): - 11/17/24 15:00 11/17/24 15:30 11/17/24 16:00 Pulse Rate 100 H 94 H 85 Respiratory Rate 29 H 37 H 19 Blood Pressure Pulse Oximetry 92 94 Oxygen Delivery Method 11/17/24 17:55 11/17/24 18:00 11/17/24 18:28 Pulse Rate 94 H 98 H Respiratory Rate 29 H Blood Pressure 200/103 H Pulse Oximetry 93 94 Oxygen Delivery Method 11/17/24 18:28 11/17/24 18:30 11/17/24 18:30 Pulse Rate 95 H 94 H Respiratory Rate 25 H 22 Blood Pressure 194/118 H Pulse Oximetry 94 94 Oxygen Delivery Method 11/17/24 19:10 11/17/24 20:00 11/17/24 21:24 Pulse Rate 80 80 Respiratory Rate Blood Pressure 194/92 H 194/92 H Pulse Oximetry Oxygen Delivery Method Room Air Oxygen Delivery Method Room Air Narrative Exam Narrative: HEENT is benign, he appears to be somewhat distressed, the lungs clear except for occasional rhonchi, cor regular rate and rhythm, abdomen obese but benign, neurological exam he is able to fire his toe flexors and extensors and bilateral lower extremities, his mild numbness in bilateral lower extremities, no significant pain with range of motion in his hips or knees, calves are soft and benign bilaterally, he has focal tenderness to palpation at the thoracolumbar junction and also in the lower lumbar spine, there is a moderate paraspinous muscle spasms Objective Imaging CT lumbar spine: My impression: L1 compression fracture with slight retropulsion of bone, some but not severe deformity, Labs 11/17/24 12:51 11/17/24 12:51 Labs: Laboratory Results - last 24 hr 11/17/24 11/17/24 11/17/24 12:51 13:33 14:08 WBC 7.4 RBC 3.57 L Hgb 12.4 L Hct 35.7 L MCV 99.9 MCH 34.8 H MCHC 34.8 RDW 12.4 Plt Count 283 Neut % (Auto) 70.9 Lymph % (Auto) 21.9 L Collin % (Auto) 6.2 Eos % (Auto) 0.5 L Baso % (Auto) 0.5 Neut # (Auto) 5300 Lymph # (Auto) 1600 Collin # (Auto) 500 Eos # (Auto) 0 Baso # (Auto) 0 PT 11.3 INR 1.0 APTT 27 Sodium 133 L Potassium 4.1 Chloride 104 Carbon Dioxide 18 L BUN 10 Creatinine 0.70 Estimated GFR > 60 BUN/Creatinine Ratio 14.3 Glucose 156 H Lactate 2.7 H Calcium 9.4 Total Bilirubin 0.8 AST 47 ALT 28 Alkaline Phosphatase 94 Ammonia < 9 L Troponin I < 0.012 Total Protein 8.0 Albumin 4.6 Globulin 3.4 Albumin/Globulin Ratio 1.4 TSH 1.00 Prolactin 19.9 H Urine Color Yellow Urine Appearance Slightly cloudy Urine pH 6.0 Ur Specific [place] 1.015 Urine Protein Negative Urine Glucose (UA) Negative Urine Ketones Negative Urine Occult Blood 1+ H Urine Nitrate Positive H Urine Bilirubin Negative Urine Urobilinogen 0.2 Ur Leukocyte Esterase 1+ H Urine RBC 1-5/hpf Urine WBC 10-30/hpf H Ur Squamous Epith Cells 0-1 /hpf Urine Bacteria Few (2-10) H Ur Culture Indicated? TNP Micro UA Comment Vol Urine Centrifuged 10ml (spun) Salicylates < 1.0 U Opiates 300ng/mL cut Negative Ur Oxycodone Screen Positive H Urine Methadone Screen Negative Acetaminophen < 10 Ur Barbiturates Screen Negative U Tricyclic Antidepress Negative Ur Phencyclidine Scrn Negative Ur Amphetamines Screen Negative U Methamphetamines Scrn Negative Ur MDMA Scrn (Ecstasy) Negative U Benzodiazepines Scrn Negative Urine Cocaine Screen Negative U Marijuana (THC) Screen Positive H Urine Specific [place] Ethyl Alcohol < 10 Ur Creatinine 11/17/24 11/17/24 11/17/24 14:08 14:51 17:05 WBC RBC Hgb Hct MCV MCH MCHC RDW Plt Count Neut % (Auto) Lymph % (Auto) Collin % (Auto) Eos % (Auto) Baso % (Auto) Neut # (Auto) Lymph # (Auto) Collin # (Auto) Eos # (Auto) Baso # (Auto) PT INR APTT Sodium Potassium Chloride Carbon Dioxide BUN Creatinine Estimated GFR BUN/Creatinine Ratio Glucose Lactate 2.1 Calcium Total Bilirubin AST ALT Alkaline Phosphatase Ammonia Troponin I 0.051 H Total Protein Albumin Globulin Albumin/Globulin Ratio TSH Prolactin Urine Color Urine Appearance Urine pH Normal Ur Specific [place] Urine Protein Urine Glucose (UA) Urine Ketones Urine Occult Blood Urine Nitrate Urine Bilirubin Urine Urobilinogen Ur Leukocyte Esterase Urine RBC Urine WBC Ur Squamous Epith Cells Urine Bacteria Ur Culture Indicated? Micro UA Comment Vol Urine Centrifuged Salicylates U Opiates 300ng/mL cut Ur Oxycodone Screen Urine Methadone Screen Acetaminophen Ur Barbiturates Screen U Tricyclic Antidepress Ur Phencyclidine Scrn Ur Amphetamines Screen U Methamphetamines Scrn Ur MDMA Scrn (Ecstasy) U Benzodiazepines Scrn Urine Cocaine Screen U Marijuana (THC) Screen Urine Specific [place] Normal Ethyl Alcohol Ur Creatinine Normal Assessment & Plan Assessment and plan (1) Closed L1 vertebral fracture: Status: Acute (2) Seizure: Status: Acute (3) Low back pain: Status: Acute Plan He has an L1 compression fracture which is acute. He has chronic narcotic dependence taking oxycodone 10 mg up to every 3 hours. There is some retropulsion of bone on the L1 compression fracture but it is not severe. I think he likely can be managed with conservative treatment including a TLS brace. We will work on getting him fitted for a brace tomorrow. He can be mobilized with physical therapy. He has inadequate pain control at this point and he is chronically narcotic dependent. He did tolerate IV Dilaudid in the emergency room. I recommended that we add IV Dilaudid as an alternative to his medications for severe pain. He has chronic numbness in bilateral feet and some component of peripheral neuropathy but does not appear to have any acute neurological injury. There is clearly a new lumbar spine compression fracture. I would not recommend aggressive anticoagulation in the face of his acute fracture unless absolutely necessary. Time-Based Coding :: [TOTAL MINUTES] spent with patient and on the chart (including review of chart, obtaining history, exam, reviewing outside data, placing orders, documenting exam and treatment plan, and counseling patient) on [DATE]. Quality VTE Deep Vein Thrombosis/Pulmonary Embolism Present on Admission: No
[2024-11-17] MEDS: ONDANSETRON 4 MG/2 ML INJ IV (23:00)
[2024-11-18] VITALS (8 sets, daily range): BP systolic 120–172; BP diastolic 64–83; PULSE 66–88; RESP 16–22; TEMP 36.2–36.4; O2SAT 92–98
[2024-11-18] MEDS: ACETAMINOPHEN 325 MG TABLET 650 MG PO ×4 (00:11→19:01)
[2024-11-18 01:10] LABS: Troponin I 0.067 ng/mL (0.01-0.034)
[2024-11-18] MEDS: OXYCODONE IR 10 MG TABLET PO ×6 (02:00→20:16)
[2024-11-18] MEDS: ONDANSETRON 4 MG/2 ML INJ IV (03:20)
--- NOTE | 2024-11-18 05:34 | PM.HP.1 ---
History of Present Illness History of Present Illness Chief complaint: AMS Narrative: 69 years old male with history of chronic back pain, GERD, hyperlipidemia, BPH, presents to the ER with with possible seizure. He was found by his fianc?e with foaming in his mouth at the recliner. The patient denies any history of seizure. He was postictally confused for few minutes and had bitten his tongue. Denies any incontinence. The patient unable to recall the event. Denies any neurodeficits including headache, blurry vision, slurred speech, numbness or weakness of his extremities or recent head injuries. Laboratory was unremarkable except sodium 133, glucose 156, lactate 2.1, calcium 9.4, troponin 0.0 51, prolactin 19.9, UA positive for UTI and toxicology positive for oxycodone and marijuana. Chest x-ray negative. Abdominal CT scan shows L1 compression fracture with undetermined etiology but probably acute. Cholelithiasis. CT of the brain shows no acute intracranial pathology. [facility] Social History household members: spouse Smoking Status: Current some day smoker Meds Home Medications and Allergies Home Medications ?Medication ?Instructions ?Recorded ?Confirmed ?Type atorvastatin 80 mg tablet 80 mg PO DAILY 11/17/24 11/17/24 History omeprazole 20 mg capsule,delayed 20 mg PO DAILY 11/17/24 11/17/24 History release oxycodone-acetaminophen 10 mg-325 1 tab PO Q3H PRN pain 11/17/24 11/17/24 History mg tablet tamsulosin 0.4 mg capsule 0.8 mg PO DAILY 11/17/24 11/17/24 History Allergies Allergy/AdvReac Type Severity Reaction Status Date / Time No Known Drug Allergies Allergy Verified 11/17/24 12:52 Review of Systems Review of Systems Narrative: Positive for altered mental status. Forming mouth and possible seizure. Negative for headaches, nausea vomiting, chest pain, abdominal pain, fever, chills, cough, numbness weakness on 1 side of his body, facial droop, slurred speech, change in his vision, recent injury. Exam Vital Signs (past 8 hours): - 11/18/24 00:27 Temperature 97.4 F L Pulse Rate 72 Respiratory Rate 16 Blood Pressure 136/65 Pulse Oximetry 92 Oxygen Flow Rate 0 Oxygen Delivery Method Room Air Oxygen Flow Rate 0 Narrative Exam Narrative: Const General: cooperative, well developed and No acute distress [facility] Other: No sign of head injury. Eyes Pupils: PERRL EOM: EOM intact bilaterally Neck Neck: normal visual inspection and supple Resp Other: Clear to auscultation bilaterally without rhonchi or wheezing. No acute respiratory distress. Cardio Other: Normal S1-S2 without murmur. Regular rhythm. GI Other: Soft, nontender. No distention. No guarding or rebound tenderness. Back/Spine/Pelvis Other: No midline C-spine, thoracolumbar spine tenderness on palpation or step-off. Skin General: no rashes or lesions noted Neuro Other: Alert oriented x3. Strength 5/5 in both arms and legs. Normal facial movement, eye movement. Pupil was equal round reactive to light in both eyes. Extrem Other: No pedal edema in both legs. Objective Labs 11/17/24 12:51 11/17/24 12:51 Labs: Laboratory Results - last 24 hr 11/17/24 11/17/24 11/17/24 12:51 13:33 14:08 WBC 7.4 RBC 3.57 L Hgb 12.4 L Hct 35.7 L MCV 99.9 MCH 34.8 H MCHC 34.8 RDW 12.4 Plt Count 283 Neut % (Auto) 70.9 Lymph % (Auto) 21.9 L [place] % (Auto) 6.2 Eos % (Auto) 0.5 L Baso % (Auto) 0.5 Neut # (Auto) 5300 Lymph # (Auto) 1600 [place] # (Auto) 500 Eos # (Auto) 0 Baso # (Auto) 0 PT 11.3 INR 1.0 APTT 27 Sodium 133 L Potassium 4.1 Chloride 104 Carbon Dioxide 18 L BUN 10 Creatinine 0.70 Estimated GFR > 60 BUN/Creatinine Ratio 14.3 Glucose 156 H Lactate 2.7 H Calcium 9.4 Total Bilirubin 0.8 AST 47 ALT 28 Alkaline Phosphatase 94 Ammonia < 9 L Troponin I < 0.012 Total Protein 8.0 Albumin 4.6 Globulin 3.4 Albumin/Globulin Ratio 1.4 TSH 1.00 Prolactin 19.9 H Urine Color Yellow Urine Appearance Slightly cloudy Urine pH 6.0 Ur Specific [place] 1.015 Urine Protein Negative Urine Glucose (UA) Negative Urine Ketones Negative Urine Occult Blood 1+ H Urine Nitrate Positive H Urine Bilirubin Negative Urine Urobilinogen 0.2 Ur Leukocyte Esterase 1+ H Urine RBC 1-5/hpf Urine WBC 10-30/hpf H Ur Squamous Epith Cells 0-1 /hpf Urine Bacteria Few (2-10) H Ur Culture Indicated? TNP Micro UA Comment Vol Urine Centrifuged 10ml (spun) Salicylates < 1.0 U Opiates 300ng/mL cut Negative Ur Oxycodone Screen Positive H Urine Methadone Screen Negative Acetaminophen < 10 Ur Barbiturates Screen Negative U Tricyclic Antidepress Negative Ur Phencyclidine Scrn Negative Ur Amphetamines Screen Negative U Methamphetamines Scrn Negative Ur MDMA Scrn (Ecstasy) Negative U Benzodiazepines Scrn Negative Urine Cocaine Screen Negative U Marijuana (THC) Screen Positive H Urine Specific [place] Ethyl Alcohol < 10 Ur Creatinine 11/17/24 11/17/24 11/17/24 14:08 14:51 17:05 WBC RBC Hgb Hct MCV MCH MCHC RDW Plt Count Neut % (Auto) Lymph % (Auto) [place] % (Auto) Eos % (Auto) Baso % (Auto) Neut # (Auto) Lymph # (Auto) [place] # (Auto) Eos # (Auto) Baso # (Auto) PT INR APTT Sodium Potassium Chloride Carbon Dioxide BUN Creatinine Estimated GFR BUN/Creatinine Ratio Glucose Lactate 2.1 Calcium Total Bilirubin AST ALT Alkaline Phosphatase Ammonia Troponin I 0.051 H Total Protein Albumin Globulin Albumin/Globulin Ratio TSH Prolactin Urine Color Urine Appearance Urine pH Normal Ur Specific [place] Urine Protein Urine Glucose (UA) Urine Ketones Urine Occult Blood Urine Nitrate Urine Bilirubin Urine Urobilinogen Ur Leukocyte Esterase Urine RBC Urine WBC Ur Squamous Epith Cells Urine Bacteria Ur Culture Indicated? Micro UA Comment Vol Urine Centrifuged Salicylates U Opiates 300ng/mL cut Ur Oxycodone Screen Urine Methadone Screen Acetaminophen Ur Barbiturates Screen U Tricyclic Antidepress Ur Phencyclidine Scrn Ur Amphetamines Screen U Methamphetamines Scrn Ur MDMA Scrn (Ecstasy) U Benzodiazepines Scrn Urine Cocaine Screen U Marijuana (THC) Screen Urine Specific [place] Normal Ethyl Alcohol Ur Creatinine Normal 11/18/24 00:22 WBC RBC Hgb Hct MCV MCH MCHC RDW Plt Count Neut % (Auto) Lymph % (Auto) [place] % (Auto) Eos % (Auto) Baso % (Auto) Neut # (Auto) Lymph # (Auto) [place] # (Auto) Eos # (Auto) Baso # (Auto) PT INR APTT Sodium Potassium Chloride Carbon Dioxide BUN Creatinine Estimated GFR BUN/Creatinine Ratio Glucose Lactate Calcium Total Bilirubin AST ALT Alkaline Phosphatase Ammonia Troponin I 0.067 H Total Protein Albumin Globulin Albumin/Globulin Ratio TSH Prolactin Urine Color Urine Appearance Urine pH Ur Specific [place] Urine Protein Urine Glucose (UA) Urine Ketones Urine Occult Blood Urine Nitrate Urine Bilirubin Urine Urobilinogen Ur Leukocyte Esterase Urine RBC Urine WBC Ur Squamous Epith Cells Urine Bacteria Ur Culture Indicated? Micro UA Comment Vol Urine Centrifuged Salicylates U Opiates 300ng/mL cut Ur Oxycodone Screen Urine Methadone Screen Acetaminophen Ur Barbiturates Screen U Tricyclic Antidepress Ur Phencyclidine Scrn Ur Amphetamines Screen U Methamphetamines Scrn Ur MDMA Scrn (Ecstasy) U Benzodiazepines Scrn Urine Cocaine Screen U Marijuana (THC) Screen Urine Specific [place] Ethyl Alcohol Ur Creatinine Assessment & Plan Assessment & Plan narrative: New onset seizure. Unclear etiology. -Serial Neuro checks, -Keppra, Dilantin, diazepam prn for seizures -EEG, MRI, -start IV hydration -Seizure precautions, Fall precautions, -Neurology consult for anti seizure drug therapy with 2nd unprovoked seizure UTI -Blood culture, urine culture, -Antibiotics, ceftriaxone, -Monitor for urine retention, check post void residuals. Compression Fracture of L1 -TLSO braise per spine surgeon -pain meds PRN -IVF -PT OT -FU with spine surgeon Elevated troponin. Cardiology consulted. - Telemetry, serial cardiac enzymes - Start aspirin, lisinopril 20 mg twice daily, atorvastatin 80 mg daily - Echo - Nitroglycerin as needed GERD. Restart omeprazole Hyperlipidemia. Restart statins BPH. Restart tamsulosin I performed this consultation using real-time telehealth tools, including a live video connection between my location and the patient's location. As the provider for this telehealth service, I attest that I introduced myself to the patient, provided my credentials, disclosed my location, and determined that, based on a review of the patients chart and/or a discussion with members of the patient's treatment team, telemedicine via a real-time, two-way, interactive audio and video platform is an appropriate and effective means of providing this service. The patient and I mutually agree that this visit is appropriate for telemedicine as well. Disclaimer Note: To increase efficiency, your provider may have prepared this document using voice recognition technology. In that case, if a word or phrase is confusing, or does not make sense, this is likely due to a recognition error within the program which was not discovered during the provider?s review. If you believe an error has occurred, please notify your provider?s office at your earliest convenience, so we can correct any mistakes. Time-Based Coding :: [TOTAL MINUTES] spent with patient and on the chart (including review of chart, obtaining history, exam, reviewing outside data, placing orders, documenting exam and treatment plan, and counseling patient) on [DATE]. Quality VTE Deep Vein Thrombosis/Pulmonary Embolism Present on Admission: No MIPS - Admit I confirm the patient?s Advance Care Plan is present, Code status is documented, Surrogate decision maker is in patient?s record [If Yes, STOP here]: Yes MIPS - Meds 'Current medications' to include all prescriptions, [id number] products, herbals, cannabis/cannabidiol products, and vitamin/mineral/dietary (nutritional) supplements. I have utilized all available resources to obtain, update, or review the patient?s current medications. [If Yes, STOP here]: Yes
[2024-11-18 06:16] LABS: Add Manual Diff / Slide Review NO; Hematocrit 37.7 % (41-53); Hemoglobin 13.1 g/dL (13.5-17.5); Lymphocytes Absolute Auto 1100 /uL (1100-4500); Mean Corpuscular HGB Conc 34.8 % (30-36); Mean Corpuscular Hemoglobin 34.5 PG (26-34); Mean Corpuscular Volume 99.1 fL (80-100); Platelet Count 307 X10^3/uL (150-400)
[2024-11-18 06:32] LABS: Blood Urea Nitrogen 9 mg/dL (9-20); Calcium 9.1 mg/dL (8.4-10.2); Carbon Dioxide 23 mmol/L (22-32); Chloride 100 mmol/L (98-107); Estimated Glomerular Filt Rate > 60 mL/min (>60); Glucose 122 mg/dL (70-99); HEMOLYSIS < 15 (0-50); Potassium 3.3 mmol/L (3.4-5.1); Sodium 135 mmol/L (137-145)
[2024-11-18 06:36] LABS: Cholesterol 264 mg/dL (140-199); HDL Cholesterol 79 mg/dL (40-60); Triglycerides 100 mg/dL (35-150)
[2024-11-18 06:44] LABS: Troponin I 0.060 ng/mL (0.01-0.034)
--- NOTE | 2024-11-18 06:57 | PC.NURSE ---
Assembly Repairer Summary-Patient is A/Ox3, unable to recall details after seizure at home. Back pain was difficult to get controlled at first, receiving scheduled Tylenol and Robaxin, oxycodone and IV Dilaudid prn, and lidocaine patch. IV Zofran for nausea and dry heaves. 1x dose of 1mg PO lorazepam for anxiety. Dr. White saw patient. Dr. Carpenter saw patient. Patient felt best lying low in bed, flat on back with feet raised on footboard. Echo has been done. MRI ordered.
--- NOTE | 2024-11-18 07:50 | PM.CN ---
History of Present Illness Consult details Date Patient Seen: 11/18/24 Time Patient Seen: 07:50 Chief complaint: AMS Reason for consult: Elevated troponin Narrative: This is a 77-year-old male past medical history hyperlipidemia chronic pain syndrome long-term opioid use history of smoking marijuana 20 years history of bladder cancer status post resection x2 admitted to the emergency room after a witnessed tonic clonic seizure. Patient states that he takes high-dose oxycodone for his chronic back pain. Yesterday he did not take his full dose and had a sudden onset seizure as he was walking around the house. Immediately after the seizure he was brought to the emergency room for urgent evaluation. Patient denied any history of chest pains shortness of breath, respiratory distress, dizziness presyncope or syncope. Denied any headaches, visual changes prior to his event. He was told his blood pressure was adequate at the time of presentation. He denies any new GI or complaints. He reported no nocturia dysuria or hematuria prior to the admission. There was no history of fever chills cough. Meds Home Medications and Allergies Home Medications ?Medication ?Instructions ?Recorded ?Confirmed ?Type atorvastatin 80 mg tablet 80 mg PO DAILY 11/17/24 11/17/24 History omeprazole 20 mg capsule,delayed 20 mg PO DAILY 11/17/24 11/17/24 History release oxycodone-acetaminophen 10 mg-325 1 tab PO Q3H PRN pain 11/17/24 11/17/24 History mg tablet tamsulosin 0.4 mg capsule 0.8 mg PO DAILY 11/17/24 11/17/24 History Allergies Allergy/AdvReac Type Severity Reaction Status Date / Time No Known Drug Allergies Allergy Verified 11/17/24 12:52 Review of Systems Review of Systems ROS: Yes All systems reviewed with the patient and are negative except as otherwise documented Constitutional Comments: Chronic pain Cardiovascular Cardiovascular: Reports system reviewed and no additional complaints, except as documented Respiratory Respiratory: Reports as per HPI Genitourinary Genitourinary: Reports nocturia Musculoskeletal Musculoskeletal: Reports back pain and Reports arthralgias Neurologic Neurologic: Reports seizure-like activity Comments: Admitted with first episode of Seizure Exam Vital Signs (past 8 hours): - 11/18/24 00:27 11/18/24 06:00 Temperature 97.4 F L 97.4 F L Pulse Rate 72 73 Respiratory Rate 16 19 Blood Pressure 136/65 138/67 Pulse Oximetry 92 93 Oxygen Flow Rate 0 0 Oxygen Delivery Method Room Air Oxygen Flow Rate 0 Const General: cooperative, healthy appearing and in distress Nutritional Appearance: average body habitus and well nourished Orientation: oriented x3 Limitations: physical limitations Other: Back pain Eyes Pupils: pupil size bilaterally EOM: EOM intact bilaterally Neck Neck: normal visual inspection and full ROM Carotids: bruit on the right (right carotid bruit) Chest Chest: normal inspection of the chest and normal palpation of entire chest wall Resp Effort & Inspection: normal respiratory effort and able to speak in complete sentences Auscultation: clear to auscultation bilaterally Cardio Palpation: normal PMI Rate: regular rate Rhythm: regular rhythm Heart Sounds: S1 normal, S2 normal, normal, physiologic split S2 and murmur (Soft systolic murmur Grade 2/6) systolic GI Inspection: normal to inspection Neuro Pupils: Pinpoint: bilateral Psych Appearance: grossly normal Mental Status: mental status grossly normal Objective ECG Impression: NSR with prolonged QT interval on arrival. QTc 471msec NSR with QT 438msec Imaging CT scan - head: My impression: No evidence of tumor or mass, bleeding. Echo: My impression: Normal systolic function. No regional wall motion abnormalities are noted. Radiologist's impression: Results are pending. Labs 11/18/24 06:05 11/18/24 06:05 Labs: Laboratory Results - last 24 hr 11/17/24 11/17/24 11/17/24 12:51 13:33 14:08 WBC 7.4 RBC 3.57 L Hgb 12.4 L Hct 35.7 L MCV 99.9 MCH 34.8 H MCHC 34.8 RDW 12.4 Plt Count 283 Neut % (Auto) 70.9 Lymph % (Auto) 21.9 L [place] % (Auto) 6.2 Eos % (Auto) 0.5 L Baso % (Auto) 0.5 Neut # (Auto) 5300 Lymph # (Auto) 1600 [place] # (Auto) 500 Eos # (Auto) 0 Baso # (Auto) 0 PT 11.3 INR 1.0 APTT 27 Sodium 133 L Potassium 4.1 Chloride 104 Carbon Dioxide 18 L BUN 10 Creatinine 0.70 Estimated GFR > 60 BUN/Creatinine Ratio 14.3 Glucose 156 H Lactate 2.7 H Calcium 9.4 Total Bilirubin 0.8 AST 47 ALT 28 Alkaline Phosphatase 94 Ammonia < 9 L Troponin I < 0.012 Total Protein 8.0 Albumin 4.6 Globulin 3.4 Albumin/Globulin Ratio 1.4 Triglycerides Cholesterol LDL Cholesterol, Calc HDL Cholesterol TSH 1.00 Prolactin 19.9 H Urine Color Yellow Urine Appearance Slightly cloudy Urine pH 6.0 Ur Specific [place] 1.015 Urine Protein Negative Urine Glucose (UA) Negative Urine Ketones Negative Urine Occult Blood 1+ H Urine Nitrate Positive H Urine Bilirubin Negative Urine Urobilinogen 0.2 Ur Leukocyte Esterase 1+ H Urine RBC 1-5/hpf Urine WBC 10-30/hpf H Ur Squamous Epith Cells 0-1 /hpf Urine Bacteria Few (2-10) H Ur Culture Indicated? TNP Micro UA Comment Vol Urine Centrifuged 10ml (spun) Salicylates < 1.0 U Opiates 300ng/mL cut Negative Ur Oxycodone Screen Positive H Urine Methadone Screen Negative Acetaminophen < 10 Ur Barbiturates Screen Negative U Tricyclic Antidepress Negative Ur Phencyclidine Scrn Negative Ur Amphetamines Screen Negative U Methamphetamines Scrn Negative Ur MDMA Scrn (Ecstasy) Negative U Benzodiazepines Scrn Negative Urine Cocaine Screen Negative U Marijuana (THC) Screen Positive H Urine Specific [place] Ethyl Alcohol < 10 Ur Creatinine 11/17/24 11/17/24 11/17/24 14:08 14:51 17:05 WBC RBC Hgb Hct MCV MCH MCHC RDW Plt Count Neut % (Auto) Lymph % (Auto) [place] % (Auto) Eos % (Auto) Baso % (Auto) Neut # (Auto) Lymph # (Auto) [place] # (Auto) Eos # (Auto) Baso # (Auto) PT INR APTT Sodium Potassium Chloride Carbon Dioxide BUN Creatinine Estimated GFR BUN/Creatinine Ratio Glucose Lactate 2.1 Calcium Total Bilirubin AST ALT Alkaline Phosphatase Ammonia Troponin I 0.051 H Total Protein Albumin Globulin Albumin/Globulin Ratio Triglycerides Cholesterol LDL Cholesterol, Calc HDL Cholesterol TSH Prolactin Urine Color Urine Appearance Urine pH Normal Ur Specific [place] Urine Protein Urine Glucose (UA) Urine Ketones Urine Occult Blood Urine Nitrate Urine Bilirubin Urine Urobilinogen Ur Leukocyte Esterase Urine RBC Urine WBC Ur Squamous Epith Cells Urine Bacteria Ur Culture Indicated? Micro UA Comment Vol Urine Centrifuged Salicylates U Opiates 300ng/mL cut Ur Oxycodone Screen Urine Methadone Screen Acetaminophen Ur Barbiturates Screen U Tricyclic Antidepress Ur Phencyclidine Scrn Ur Amphetamines Screen U Methamphetamines Scrn Ur MDMA Scrn (Ecstasy) U Benzodiazepines Scrn Urine Cocaine Screen U Marijuana (THC) Screen Urine Specific [place] Normal Ethyl Alcohol Ur Creatinine Normal 11/18/24 11/18/24 00:22 06:05 WBC 10.7 RBC 3.81 L Hgb 13.1 L Hct 37.7 L MCV 99.1 MCH 34.5 H MCHC 34.8 RDW 12.6 Plt Count 307 Neut % (Auto) 80.4 H Lymph % (Auto) 10.2 L [place] % (Auto) 8.9 Eos % (Auto) 0.1 L Baso % (Auto) 0.4 Neut # (Auto) 8600 H Lymph # (Auto) 1100 [place] # (Auto) 1000 H Eos # (Auto) 0 Baso # (Auto) 0 PT INR APTT Sodium 135 L Potassium 3.3 L Chloride 100 Carbon Dioxide 23 BUN 9 Creatinine 0.75 Estimated GFR > 60 BUN/Creatinine Ratio 12.0 Glucose 122 H Lactate Calcium 9.1 Total Bilirubin AST ALT Alkaline Phosphatase Ammonia Troponin I 0.067 H 0.060 H Total Protein Albumin Globulin Albumin/Globulin Ratio Triglycerides 100 Cholesterol 264 H LDL Cholesterol, Calc 165 H HDL Cholesterol 79 H TSH Prolactin Urine Color Urine Appearance Urine pH Ur Specific [place] Urine Protein Urine Glucose (UA) Urine Ketones Urine Occult Blood Urine Nitrate Urine Bilirubin Urine Urobilinogen Ur Leukocyte Esterase Urine RBC Urine WBC Ur Squamous Epith Cells Urine Bacteria Ur Culture Indicated? Micro UA Comment Vol Urine Centrifuged Salicylates U Opiates 300ng/mL cut Ur Oxycodone Screen Urine Methadone Screen Acetaminophen Ur Barbiturates Screen U Tricyclic Antidepress Ur Phencyclidine Scrn Ur Amphetamines Screen U Methamphetamines Scrn Ur MDMA Scrn (Ecstasy) U Benzodiazepines Scrn Urine Cocaine Screen U Marijuana (THC) Screen Urine Specific [place] Ethyl Alcohol Ur Creatinine [facility] Medical History (Updated 11/18/24 @ 08:11 by Clinton Finley MD) At risk for prolonged QT interval syndrome Comment: History of bladder cancer s/p resection. Under the care of urologist in [place]. Details not available. 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 Status: Acute (2) At risk for prolonged QT interval syndrome: Status: Acute Plan Continue pain management. Patient seen by orthopedic surgeon with recommendations for pain management and physical therapy. Echocardiogram already performed results awaited. Troponin levels are trending down. Pharmacological stress testing. Patient is willing to stay an extra day in the hospital to complete the testing. Monitor QT interval on a regular basis due to risk of QT prolongation with oxycodone-risk of sudden cardiac . Aspirin 81 mg daily Atorvastatin 80 mg daily Long-term monitoring will be helpful to studies underlying rhythm. Assessment & Plan narrative: 69-year-old man with no significant past cardiac history presented to the emergency room after a 1st witnessed episode of seizure-fixed case, froth through the mouth, lip bite, unintentional motor activity. On arrival he was found to have elevated troponin. No associated symptoms of chest pain shortness of breath noted before the seizure activity or after the seizure activity. He did not complain of any symptoms in the emergency room and was very comfortable. EKG did not show any evidence of acute ischemic injury except for prolonged QT interval and elevated troponin. Based upon history this is type 2 myocardial infarction most likely due to demand ischemia during the seizure activity. Patient has history of chronic pain syndrome and takes high-dose oxycodone which can potentially prolong QT interval and cause torsade de pointes. No ventricular activity has been noticed during the hospitalization. Patient also stated that he did not take he has daily dose of oxycodone yesterday. A drug withdrawal can potentially cause seizure activity. Troponin levels are now trending down and patient is asymptomatic. Time-Based Coding :: [TOTAL MINUTES] spent with patient and on the chart (including review of chart, obtaining history, exam, reviewing outside data, placing orders, documenting exam and treatment plan, and counseling patient) on [DATE].
[2024-11-18] MEDS: POTASSIUM CHLORIDE 20 MEQ TAB 40 MEQ PO ×2 (08:35→12:28)
[2024-11-18] MEDS: SODIUM CHLORIDE 0.9% FLUSH 10 ML IV ×2 (08:36→23:30)
[2024-11-18] MEDS: ATORVASTATIN 20 MG TABLET 80 MG PO (08:36)
[2024-11-18] MEDS: PANTOPRAZOLE DR 20 MG TABLET PO (08:36)
[2024-11-18] MEDS: TAMSULOSIN 0.4 MG CAPSULE 0.8 MG PO (08:36)
[2024-11-18] MEDS: ENOXAPARIN 40 MG/0.4 ML SYRINGE SUBCUT (08:36)
[2024-11-18] MEDS: ASPIRIN EC 81 MG TABLET PO (08:36)
--- NOTE | 2024-11-18 09:17 | PT-IP ANOTE ---
PT consult received. PT reviewed chart and pt adm for ND and his troponin continues to increase today. There is an order to fit pt for a TLSO for L1 compression fracture from orthopedics. PT will hold today. Will initiate PT consult when pt's troponin trends downward in setting of pt adm with acute ND. TLSO fitting would likely increase pain and not improve his cardiac presentation today.
--- NOTE | 2024-11-18 10:13 | PT-IP ANOTE ---
Pt discussed in rounds and found to have type II MN after seizure per attending. Diagnostics reveal peak of troponin was .067 early a.m. and is at latest check .06 and team would like PT and OT to proceed with assessment and TLSO fitting.
--- NOTE | 2024-11-18 11:01 | PT.IIE ---
Current Diagnoses Myocardial infarction type 2 (11/17/24) Low back pain, unspecified (11/17/24) Unspecified convulsions (11/17/24) Unspecified fracture of first lumbar vertebra, initial encounter for closed fracture (11/17/24) Other specified personal risk factors, not elsewhere classified (11/17/24) Medical History (Last Updated 11/18/24 @ 08:11 by Clinton Finley MD) At risk for prolonged QT interval syndrome Physical Therapy Inpatient Evaluation/Re-Eval M1 PT/OT-IP Prior Functional Status Start: 11/18/24 10:43 Freq: NEEDED Status: Active Protocol: Document 11/18/24 10:18 MB (Rec: 11/18/24 11:00 MB Desktop) Medical Review Prior Functional Status Communication WNLs Mobility and Gait I, has a RW and cane, does not use, fell when he had seizure at home Social History Household Members significant other Living Arrangements House Number of Floors ( One Floor Floors) Number of Stairs To 1 platform step to enter Enter/Railing? Home Environment High Toilet,Walk in Shower,Built-In Shower Seat Home Equipment Front Wheel Walker,Straight Cane,Shower Seat with Backrest,Hand Held Shower,Grab Bars Near Toilet,Grab Bars In Shower Employment Status Retired M2 PT-IP Current Condition Start: 11/18/24 10:43 Freq: NEEDED Status: Active Protocol: Document 11/18/24 10:18 MB (Rec: 11/18/24 11:00 MB Desktop) Physical Therapy Current Condition Current Condition Evaluation Date 11/18/24 Treatment Diagnosis Seizure, ID, L1 compression fracture M3 PT-IP Subjective Start: 11/18/24 10:43 Freq: NEEDED Status: Active Protocol: Document 11/18/24 10:18 MB (Rec: 11/18/24 11:00 MB Desktop) Therapy Pain Assessment Pain When Pain Assessed At Rest Pain Present Pain Present Pain Reported Location Back Intensity 6 Pain Behaviors Guarding,Moaning Pain Management Distraction,Modification of Treatment,Re-positioning, Techniques Timing of Activity with Medications M4 PT-IP Mobility and Gait Start: 11/18/24 10:43 Freq: NEEDED Status: Active Protocol: Document 11/18/24 10:18 MB (Rec: 11/18/24 11:00 MB Desktop) PT-Bed Mobility Assessment Rolling Type of Rolling Log Rolling,Roll to Right,Roll to Left Level of Assist Contact Guard Assistance Supine to Sit Supine to Sit Contact Guard Assistance,Bedrails Sit to Supine Sit to Supine Contact Guard Assistance,Bedrails Scooting Scooting to Edge of Contact Guard Assistance Bed PT-Transfer Assessment Sit to and From Stand Sit to and from Contact Guard Assistance,1 Person Assistance,Use of Stand Upper Extremities Equipment Transfer Assistive Gait Belt,Front Wheeled Walker Device Orthotic/Prosthetic Yes Devices or Brace: Transfers Transfer Destination Bed Transfer Technique Right side stepping Transfer Ability Level of Assist Minimal Assistance Comments Mobility Comments Standing so that PT can adjust TLSO that PT delivers: demarco and hair long and get caught in brace and pt cannot assist to adjust with hair tie, dependent to don brace. Pt tolerates only several minutes of static standing at RW for PT to adjust brace and then asks to sit back down. Ed in log rolling and repositioned in bed with head flat and bottom of bed with legs flexed to support back and pt falls back to sleep. Handout with log rolling left in room and spoke with nsg about TLSO on when up Gait Assessment Gait Gait Assistance Minimum Assistance Required: Distance (Feet) 2 Able to Maintain Yes Weight Bearing Status During Gait Assistive Devices Assistive Device Gait Belt,Front Wheeled Walker Orthotic/Prosthetic Yes Devices or Brace: Gait Deviations General Gait Pattern Antalgic,Ataxic,Decreased Stride Length,Flexed Trunk, Step-to Gait Factors Limiting Gait Function Factors Limiting Decreased Activity Tolerance,Difficulty Following Gait Function Directions,Limited Range of Motion,Pain,Poor Balance, Poor Safety Awareness Comments Gait Comments Right side stepping to the HOB only PT-Balance Assessment Sitting Balance and Reactions Static Sitting Good Balance Ability Dynamic Sitting Good Balance Ability Standing Balance and Reactions Static Standing Fair Balance Ability Dynamic Standing Fair Balance Ability Device Used RW M5 PT-IP Objective Assessments Start: 11/18/24 10:43 Freq: NEEDED Status: Active Protocol: Document 11/18/24 10:18 MB (Rec: 11/18/24 11:00 MB Desktop) Orientation Orientation/Cognition Level of Alertness Alert Orientation Name,Birthday,Day of Week,Place,Situation Language Function No Deficits Noted Ability Safety Awareness Decreased Safety Awareness Memory Description No Deficits Noted Gross Range of Motion Upper Extremity ROM Impairments Defer to OT Lower Extremity ROM Impairments Pt can only tolerate functional assessment and no deficits noted today Strength Comments Strength Comments Pt can only tolerate functional assessment and no deficits noted today Coordination Assessment Assessment Coordination NT Comments Sensation Assessment Comments Sensation Comments NT: pt cannot tolerate today Muscle Tone Muscle Tone WNL Yes M6 PT-IP Treatment Start: 11/18/24 10:43 Freq: NEEDED Status: Active Protocol: Document 11/18/24 10:18 MB (Rec: 11/18/24 11:00 MB Desktop) Physical Therapy Treatment Education Education Provided Precautions,Safety Other Treatments Other Treatment Ed in log rolling, how to don TLSO and to wear when OOB Performed M7 PT-IP Assessment and Plan Start: 11/18/24 10:43 Freq: NEEDED Status: Active Protocol: Document 11/18/24 10:18 MB (Rec: 11/18/24 11:00 MB Desktop) PT Summary Assessment and Plan Potential Rehabilitation Fair Potential Status of Condition Evolving at Evaluation Summary Impairments Pain,ROM,Strength,Balance,Coordination,Cognition,Bed Mobility,Transfers,Gait,Activity Tolerance Assessment Summary Pt is a 69 y/o male adm after seizure and found to have ID and L1 compression fracture. Troponin peaked in the early hours this morning and is trending downward at this time. Pt presents with lethargy and high back pain , even after receiving dilaudid, with PT today. PT brings in TLSO and fits loosely to patient, who has trouble tolerating standing for fitting today. Left TLSO and log rolling instructions in room and ed pt and nsg in need to wear brace when up/sitting/OOB/gait. Pt returned to supine with legs elevated and he falls immediately to sleep after treatment. Goals Bed Mobility Goal Independent Transfer Goal Independent,Front Wheeled Walker Gait Goal Independent,Front Wheel Walker Gait Distance 75 Other Goals Pt will don TLSO I. Pt will perform log rolling with I to protect spinal fracture. Pt will ascend and descend platform step with RW and no more than superv to allow safe home entrance. Days to Meet Goals 5 Frequency of Treatment Frequency Of Once a Day Treatment Treatment Plan Physical Therapy Bed Mobility Training,Transfer Training,Gait Training, Treatment Plan Therapeutic Exercise,Balance Retraining,Discharge Planning,Hot or Cold Pack,Neuromuscular Re-ed, Coordination Retraining,Manual Therapy Precautions Lumbar Precautions Log Roll,No Twisting,Limit Bending Recommendations To Nursing Amount of Assist 1 Person Assist Needed Discharge Recommendations PT Discharge Home with 14/11 Assist Available Recommendations Other Discharge HH vs OPPT Recommendations Transportation Needs Private Vehicle at Discharge - PT assist x1
--- NOTE | 2024-11-18 12:15 | OT.IPNOTE ---
Pt sleeping in bed on entrance of OT. OT woke pt, pt declined eval at this time, stating that he did not sleep well last night and he just wanted to rest. OT will re-attempt eval as able.
--- NOTE | 2024-11-18 13:13 | CM.DANOTE ---
DCP Assessment note pt is a 69yo M admitted with f/u for AMS following seizure, L1 compression fx. PCP Jak Razo Payer Medicare and Medicaid ELECTROENCEPHALOGRAPHIC TECHNOLOGIST reviewed EMR per provider in morning rounds, MRI pending. cause of seizure remains unknown. may not be able to tolerate stress test/MRi due to fx. per ortho note, no surgical intervention. will get brace (TLSO). per provider, may need rehab? PT=home with 24/7 assist, HH available. OT pending. ELECTROENCEPHALOGRAPHIC TECHNOLOGIST met with pt in room. pt confirms living indep with partner Naomie in [place]. drives. no DME. A/Ox4. no hx of HH vs SNF. denies SNF, preference is home with HH, no preference on agency. Naomie to drive pt home at dc. per pt, reports consumes 2-3 beers daily. no hard liquor, quit the harder stuff 13 years ago. reports no hx of withdrawal symptoms. reports had his normal beers the day before his seizure. denies any hx of tx. denies ETOH resources at this time. plans to cut back due to his situation after dc from the hospital. referral sent to Phil at [facility], acceptance pending. f2f completed. P: dc home with medically stable with partner/Sig pending acceptance. CM team will continue to follow closely for DCP coordination DANGELO Chu Discharge Planning/Care Management CM Discharge Assessment Start: 11/17/24 18:32 Freq: Status: Active Protocol: Document 11/18/24 13:11 (Rec: 11/18/24 13:13 [id number]) Discharge Planning Assessment Assigned Discharge DANGELO Pelaez Welding Equipment Sales Representative DPOA/Assigned Naomie partner Designee Name Contact Information [phone] Advance Directives? No History Provided By Patient Prior Living House Arrangements Household Members significant other Type of Drives own vehicle transporation used prior to admit Independent with ADL Yes 's Is patient alert and Yes oriented? Discharge Plan Home with Home Health Transportation partner Arrangement Referrals Initiated Home Health Additional Comment Ref sent to Sig , acceptance pending Whiteboard Updated Yes in Patient Room with name and ext. # of Professor Of Kinesiology Review Status In Process Please Provide Date 11/18/24 Initial DC Assessment Was Performed Next Review Type Continued Stay Review D
--- NOTE | 2024-11-18 14:29 | OT.IP.EVAL ---
Current Diagnoses Myocardial infarction type 2 (11/17/24) Low back pain, unspecified (11/17/24) Unspecified convulsions (11/17/24) Unspecified fracture of first lumbar vertebra, initial encounter for closed fracture (11/17/24) Other specified personal risk factors, not elsewhere classified (11/17/24) Past Medical History (Last Updated 11/18/24 @ 08:11 by Clinton Finley MD) At risk for prolonged QT interval syndrome Occupational Therapy Inpatient Evaluation/Re-Eval M1 PT/OT-IP Prior Functional Status Start: 11/18/24 10:43 Freq: NEEDED Status: Active Protocol: Document 11/18/24 14:05 YANET (Rec: 11/18/24 14:29 YANET Desktop) Medical Review Prior Functional Status Medical History Yes Reviewed Communication WNLs Mobility and Gait I, has a RW and cane, does not use, fell when he had seizure at home Activities of Daily I with BADL, IADL to include cooking, heavy housework, Living and IADL's yard work, grocery shopping. Pt walks his dog daily at the local park or beach. Social History Household Members significant other Living Arrangements House Number of Stairs To 1 step to enter Enter/Railing? Home Environment High Toilet,Walk in Shower,Built-In Shower Seat Home Equipment Front Wheel Walker,Straight Cane,Shower Seat with Backrest,Hand Held Shower,Grab Bars Near Toilet,Grab Bars In Shower Employment Status Retired M2 OT-IP Current Condition Start: 11/18/24 14:05 Freq: Status: Active Protocol: Document 11/18/24 14:05 YANET (Rec: 11/18/24 14:29 YANET Desktop) Occupational Therapy Current Condition Current Condition Evaluation Date 11/18/24 Treatment Diagnosis seizue, MN type II, L1 compression fx, decreased self care Diagnosis Onset Date 11/17/24 Post Operative Precautions Lumbar Precautions Log Roll,No Twisting,Limit Bending M3 OT- IP Subjective and Pain Start: 11/18/24 14:05 Freq: Status: Active Protocol: Document 11/18/24 14:05 YANET (Rec: 11/18/24 14:29 YANET Desktop) OT- Subjective Occupational Therapy Visit Type Type Initial Evaluation Visit Start Time 13:40 Visit Stop Time 14:01 Notes Pt reclined in bed on entrance of OT. Pt agreed to participate in OT eval. Occupational Therapy Visit Comments Patient Comments To get better and have no pain. OT Pain Assessment Pain When Pain Assessed After Treatment Pain Present Pain Present Pain Reported Location Back Intensity 7 Scale Used Numeric (0 - 10) Pain Behaviors Facial Grimacing,Guarding,Moaning,Restlessness Management Re-positioning Techniques M4 OT- IP ADL's Start: 11/18/24 14:05 Freq: Status: Active Protocol: Document 11/18/24 14:05 YANET (Rec: 11/18/24 14:29 [facility] Desktop) OT [id number] Comments OT Self-Feeding not observed Comments OT ADL-Grooming Comments OT Grooming Comments pt declines at this time OT ADL-Oral Care Comments Oral Care Comments pt declines at this time OT ADL-Dressing General Eval Lower Body Dressing Total Assistance Ability Comments OT Dressing Comments Pt requires total A with TLSO. Pt attempted to reach for socks but is unable, requiring total A for all LB dressing at this time. UB dressing not attempted at this time. OT ADL-Toileting Comments OT Toileting pt declines Comments OT ADL-Bathing Comments OT Bathing Comments not observed M5 OT- IP IADL's Start: 11/18/24 14:05 Freq: Status: Active Protocol: Document 11/18/24 14:05 YANET (Rec: 11/18/24 14:29 [email or web address] Desktop) OT-Instrumental Activities of Daily Living Home Safety Awareness Awareness of Need Good Awareness for Assistance at Home Ability to Problem Able to Problem Solve Solve Emergency Situations Medication Management Medication No Deficits Identified Management Money Management Money Management No Deficits Identified Meal Preparation Meal Preparation Caregiver Provides Assist Meal Preparation pt primarily performs but would need assist at this Comments time. Commercial Construction Superintendent Commercial Construction Superintendent Caregiver Provides Assist Driving Driving Caregiver Provides Assist Driving Comments pt primarily performs but would need assist at this time. M6 OT- IP Functional Cognition Start: 11/18/24 14:05 Freq: Status: Active Protocol: Document 11/18/24 14:05 YANET (Rec: 11/18/24 14:29 [email or web address] Desktop) Cognitive Factors Limiting Selfcare Function Cognitive Ability Level of Alertness Alert Patient Orientation Name,Age,Birthday,Month,Date,Year,Day of Week,Place, Situation Attention Span Capable of Focused Attention,Capable of Sustained Ability Attention Ability to Follow Able to Follow One Step Commands,Able to Follow Multi- Commands Step Commands Memory Description No Deficits Noted Safety Awareness No Deficits Noted Problem Solving No deficits Noted Ability Executive Function No Deficits Noted Ability Abstract Thinking No Deficits Noted Ability OT- Vision and Hearing OT- Hearing Assessment OT- Hearing WFL Assessment OT- Vision Assessment Visual Acuity WFL,Glasses For Reading M7 OT- IP Mobility and Balance Start: 11/18/24 14:05 Freq: Status: Active Protocol: Document 11/18/24 14:05 [facility] (Rec: 11/18/24 14:29 [facility] Desktop) OT- Bed Mobility Assessment Rolling Type of Rolling Log Rolling,Roll to Right Level of Assistance Contact Guard Assistance,1 Person Assistance Supine to Sit Supine to Sit Assist Minimal Assistance,1 Person Assistance Sit to Supine Sit to Supine Assist Contact Guard Assistance,1 Person Assistance Scooting Scooting to Edge of Contact Guard Assistance Bed OT-Transfer Assessment Sit to and From Stand Sit to and from Contact Guard Assistance,1 Person Assistance,Use of Stand Upper Extremities Transfers Transfer Ability Contact Guard Assistance,Minimal Assistance,1 Person Assistance,Use of Upper Extremities Technique Transfer Destination Bed Transfer Technique Stand Step Pivot Devices Transfer Assistive Gait Belt,Front Wheeled Walker Devices Comments Mobility Comments OT provides vcs for log rolling technique. Pt performs with S. Pt requires total A to don/doff TLSO brace. Pt states that his back feels better as soon as he is wearing the TLSO. Pt declines sitting up in chair as he anticipates this making his back hurt worse. OT- Gait Assessment Gait Gait Assistance Contact Guard Assist Required: Distance (Feet) 30 Assistive Devices Assistive Device Gait Belt,Front Wheeled Walker Comments Gait Ability Pt amb throughout his room with FWW and CGA. Pt stands Comments sink side, but declines sink side ADLs. Pt has no LOB, although some scissors steps noted. OT- Balance Assessment Sitting Balance and Reactions Static Sitting Good Balance Ability Dynamic Sitting Good Balance Ability Standing Balance and Reactions Static Standing Fair Balance Ability Dynamic Standing Fair Balance Ability M8 OT- IP Objective Assessments Start: 11/18/24 14:05 Freq: Status: Active Protocol: Document 11/18/24 14:05 YANET (Rec: 11/18/24 14:29 [facility] Desktop) OT Gross Range of Motion Upper Extremity Range of Motion Assessment Bilaterally Impaired ROM Impairments Against gravity pt demonstrates ~ 120 deg of shoulder flex B. When in gravity decreased position pt demonstrates WFL. Pt reports it is his back p! that limits his against gravity AROM. OT Strength Upper Extremity Strength Hand 5/5 Hand It Desktop Support Technician Strength Hand Dominance Right Comments Strength Comments Pt declines UB strength testing as he is fearful it will increase his back p! OT-Muscle Tone Assessment Muscle Tone WNL Yes OT Sensation Assessment Comments Summary Comments No deficits noted Edema Edema Absent M9 OT- IP Assessment and Plan Start: 11/18/24 14:05 Freq: Status: Active Protocol: Document 11/18/24 14:05 [facility] (Rec: 11/18/24 14:29 [facility] Summary Assessment and Plan Potential Rehabilitation Excellent Potential Analytic Complexity Low at Evaluation Summary OT Impairments Pain,Range of Motion,Strength,Functional Mobility, Grooming,Dressing,Toileting,Bathing,Toilet Transfers, Shower Transfers,Activity Tolerance Progress Towards Progressing Toward Goals Goals Assessment Summary Pt is a 69 yo M admitted after seizure and found to have MN type II and L1 compression fx. Pts participation is self-limited due to pain and how he fears it will increase if performing certain tasks. OT re-educates on log rolling. Pt demonstrates with CGA. Pt performs functional t/fs with CGA-min A. Pt requires total A for TLSO don/doff. Pt requires total A with LB dressing and declined other BADLs at time of eval. Pt lives with his significant other, pt reports that she uses a walker and will have limited ability to assist him. At OF, pt was I with BADLs, heavy house chores, yard work, daily walking of his dog, and daily driving. Pt presents with overall decrease in BADLs, IADLs, functional mobility, and activity tolerance. Skilled OT services are appropriate to address pt deficits and to promote return to OF. Pt would benefit from LB AE education. Pt would benefit HH upon d/c. Goals Grooming Goal Independent Dressing Goal Independent,Dressing Stick,Long Handled Shoe Horn, Dye Tub Operator,Sock Aid Toileting Goal Independent Bathing Goal Independent Toilet Transfer Goal Independent Shower Transfer Goal Independent Days to Meet Goals 5 Frequency of Treatment Frequency Of Once a Day Treatment Other frequency 5x/wk Treatment Plan OT Treatment Plan ADL Training,Functional Mobility,Therapeutic Exercises, Patient/Family Education,Discharge Planning Other Treatment LB AE education, EC techniques Recommendations and Next Treatment Focus Discharge Recommendations OT Discharge Home,Home Health Recommendations Transportation Needs Private Vehicle at Discharge
[2024-11-19] VITALS (7 sets, daily range): BP systolic 155–181; BP diastolic 79–87; PULSE 60–73; RESP 16–20; TEMP 35.9–36.2; O2SAT 95–98
[2024-11-19] MEDS: OXYCODONE IR 10 MG TABLET PO ×4 (00:35→09:07)
[2024-11-19] MEDS: ACETAMINOPHEN 325 MG TABLET 650 MG PO ×4 (00:35→23:07)
[2024-11-19 05:52] LABS: Blood Urea Nitrogen 13 mg/dL (9-20); Calcium 9.0 mg/dL (8.4-10.2); Carbon Dioxide 24 mmol/L (22-32); Chloride 103 mmol/L (98-107); Estimated Glomerular Filt Rate > 60 mL/min (>60); Glucose 128 mg/dL (70-99); HEMOLYSIS < 15 (0-50); Potassium 3.6 mmol/L (3.4-5.1); Sodium 136 mmol/L (137-145)
[2024-11-19] MEDS: TAMSULOSIN 0.4 MG CAPSULE 0.8 MG PO (08:17)
[2024-11-19] MEDS: ASPIRIN EC 81 MG TABLET PO (08:17)
[2024-11-19] MEDS: PANTOPRAZOLE DR 20 MG TABLET PO (08:17)
[2024-11-19] MEDS: ATORVASTATIN 20 MG TABLET 80 MG PO (08:17)
[2024-11-19] MEDS: SODIUM CHLORIDE 0.9% FLUSH 10 ML IV ×2 (08:18→23:08)
--- NOTE | 2024-11-19 11:16 | PM.PN.1 ---
Subjective Subjective Interval history: He notes he is still having pretty incapacitating back pain when he attempts to get up. He has gotten his TLSO brace and it has been fitted. He has been out of bed a little bit but he is decided he needs to go to rehab as he does not have assistance at home as a matter of fact he in general takes care of his girlfriend. Exam Vital Signs (past 8 hours): - 11/19/24 07:00 Temperature 96.9 F L Pulse Rate 73 Respiratory Rate 18 Blood Pressure 170/85 H Pulse Oximetry 95 Oxygen Delivery Method Room Air Oxygen Flow Rate 0 Narrative Exam Narrative: Resting in bed comfortably, severe restricted range motion lumbar spine tenderness to palpation along the paraspinous muscles especially in the lower lumbar spine, mild numbness in bilateral lower extremities, normal hip flexion strength normal ankle dorsiflexion and plantar flexion strength bilaterally, calves are soft bilaterally Objective Labs 11/18/24 06:05 11/19/24 04:33 Labs: Laboratory Results - last 24 hr 11/19/24 04:33 Sodium 136 L Potassium 3.6 Chloride 103 Carbon Dioxide 24 BUN 13 Creatinine 0.68 Estimated GFR > 60 BUN/Creatinine Ratio 19.1 Glucose 128 H Calcium 9.0 PFSH Medical History (Updated 11/18/24 @ 08:11 by Clinton Finley MD) At risk for prolonged QT interval syndrome Social History marital status: household members: significant other other: Retired Musician Smoking Status: Current some day smoker substance use type: marijuana, opiates and painkillers during the past year weight has: remained stable Type(s) of exercise: independent ambulation Assessment & Plan Assessment & Plan narrative: He has a significant lumbar spine fracture with slight retropulsion. He appears to be neurologically stable without new deficit. He was having problems mobilizing and has severe back pain. I have recommended that he use his talus whenever he is out of bed in a chair and when he mobilizes. I would concur that he needs to go to rehab in order to work on mobilization and ambulation. He should use his brace on a full-time basis. He should get lumbar spine x-rays in 1-2 weeks for follow up. Time-Based Coding :: [TOTAL MINUTES] spent with patient and on the chart (including review of chart, obtaining history, exam, reviewing outside data, placing orders, documenting exam and treatment plan, and counseling patient) on [DATE]. Quality VTE Deep Vein Thrombosis/Pulmonary Embolism Present on Admission: No
[2024-11-19] MEDS: OXYCODONE IR 5 MG TABLET 15 MG PO ×4 (12:04→23:07)
[2024-11-19] MEDS: CALCITONIN,SALMON, NASAL SPRAY 1 SPRAYS NASAL (12:05)
--- NOTE | 2024-11-19 13:04 | OT.IP.TRT ---
Current Diagnoses Myocardial infarction type 2 (11/17/24) Low back pain, unspecified (11/17/24) Unspecified convulsions (11/17/24) Unspecified fracture of first lumbar vertebra, initial encounter for closed fracture (11/17/24) Other specified personal risk factors, not elsewhere classified (11/17/24) Occupational Therapy Treatment Note M2 OT-IP Current Condition Start: 11/18/24 14:05 Freq: Status: Active Protocol: Document 11/18/24 14:05 YANET (Rec: 11/18/24 14:29 YANET Desktop) Occupational Therapy Current Condition Current Condition Evaluation Date 11/18/24 Treatment Diagnosis seizue, ID type II, L1 compression fx, decreased self care Diagnosis Onset Date 11/17/24 Post Operative Precautions Lumbar Precautions Log Roll,No Twisting,Limit Bending M3 OT- IP Subjective and Pain Start: 11/18/24 14:05 Freq: Status: Active Protocol: Document 11/19/24 12:46 YANET (Rec: 11/19/24 13:03 [place]IG[place] Desktop) OT- Subjective Occupational Therapy Visit Type Type Treatment Note Visit Start Time 11:50 Visit Stop Time 12:12 Notes Pt was reclined in bed with his significant other at bedside on entrance of OT. At end of tx, pt left reclined in bed with call light in reach and all needs met. Occupational Therapy Visit Comments Patient Comments Pt agreed to participate in OT tx and to learn about LB AE for dressing. OT Pain Assessment Pain When Pain Assessed After Treatment Pain Present Pain Present Pain Reported Location Back Intensity 8 Scale Used Numeric (0 - 10) Pain Behaviors Calling Out,Facial Grimacing Management Re-positioning Techniques M4 OT- IP ADL's Start: 11/18/24 14:05 Freq: Status: Active Protocol: Document 11/19/24 12:46 YANET (Rec: 11/19/24 13:03 [place] Desktop) OT GQT-Htts-Caaooqs Comments OT Self-Feeding not observed Comments OT ADL-Grooming Comments OT Grooming Comments OT encouraged pt to perform hair grooming sink side. Pt declines stating that he is in too much pain. OT ADL-Oral Care Comments Oral Care Comments OT encouraged pt to perform oral hygiene while sink side. Pt declines stating that he is in too much pain. OT ADL-Dressing Comments OT Dressing Comments Pt stated that he could not tolerate sitting EOB and declined sitting up in the chair for fear of pain. Pt stated that his pain was too severe and that he would be due for pain medication soon. Pt asked OT to demonstrate use of AE for both him and his significant other. Pt says he would like to know how to use it. OT demonstrated use of ball shagger for doffing socks and for don/doff of underpants/brief. OT demonstrates use of sock aid for donning socks and the use of a long handled shoe horn. Pt was reclined in bed at this point and does not try using the equipment. Pt would benefit from additional education. Pt would also benefit from supine dressing techniques as his pain is limiting his efforts of performing while EOB. OT ADL-Toileting Comments OT Toileting pt declines needing to use Comments OT ADL-Bathing Comments OT Bathing Comments not observed M5 OT- IP IADL's Start: 11/18/24 14:05 Freq: Status: Active Protocol: Document 11/18/24 14:05 YANET (Rec: 11/18/24 14:29 [facility]) OT-Instrumental Activities of Daily Living Home Safety Awareness Awareness of Need Good Awareness for Assistance at Home Ability to Problem Able to Problem Solve Solve Emergency Situations Medication Management Medication No Deficits Identified Management Money Management Money Management No Deficits Identified Meal Preparation Meal Preparation Caregiver Provides Assist Meal Preparation pt primarily performs but would need assist at this Comments time. Plate Drying Machine Tender Plate Drying Machine Tender Caregiver Provides Assist Driving Driving Caregiver Provides Assist Driving Comments pt primarily performs but would need assist at this time. M6 OT- IP Functional Cognition Start: 11/18/24 14:05 Freq: Status: Active Protocol: Document 11/18/24 14:05 YANET (Rec: 11/18/24 14:29 [facility]) Cognitive Factors Limiting Selfcare Function Cognitive Ability Level of Alertness Alert Patient Orientation Name,Age,Birthday,Month,Date,Year,Day of Week,Place, Situation Attention Span Capable of Focused Attention,Capable of Sustained Ability Attention Ability to Follow Able to Follow One Step Commands,Able to Follow Multi- Commands Step Commands Memory Description No Deficits Noted Safety Awareness No Deficits Noted Problem Solving No deficits Noted Ability Executive Function No Deficits Noted Ability Abstract Thinking No Deficits Noted Ability OT- Vision and Hearing OT- Hearing Assessment OT- Hearing WFL Assessment OT- Vision Assessment Visual Acuity WFL,Glasses For Reading M7 OT- IP Mobility and Balance Start: 11/18/24 14:05 Freq: Status: Active Protocol: Document 11/19/24 12:46 [facility] (Rec: 11/19/24 13:03 [facility]- Bed Mobility Assessment Rolling Type of Rolling Log Rolling,Roll to Right Level of Assistance Contact Guard Assistance,1 Person Assistance Supine to Sit Supine to Sit Assist Minimal Assistance,1 Person Assistance Sit to Supine Sit to Supine Assist Contact Guard Assistance,1 Person Assistance Scooting Scooting to Edge of Contact Guard Assistance Bed OT-Transfer Assessment Sit to and From Stand Sit to and from Contact Guard Assistance,1 Person Assistance,Use of Stand Upper Extremities Transfers Transfer Ability Contact Guard Assistance,Minimal Assistance,1 Person Assistance,Use of Upper Extremities Technique Transfer Destination Bed Transfer Technique Stand Step Pivot Devices Transfer Assistive Gait Belt,Front Wheeled Walker Devices Comments Mobility Comments OT provides vcs for log rolling technique. Pt performs with S. Pt requires total A to don/doff TLSO brace. Pt with increased c/o pain today. Yesterday, he had immediate relief after donning TLSO. Pt requests to walk around the room, important for improved I with BADLs/IADLs, however, OT is unable to persuade pt to participate in ADLs at this time. Pt requires vcs for hand placement to push up from bed and not the walker, and to reach back to the bed when returning to sitting. OT- Gait Assessment Gait Gait Assistance Contact Guard Assist Required: Distance (Feet) 30 Assistive Devices Assistive Device Gait Belt,Front Wheeled Walker Comments Gait Ability Pt amb throughout his room with FWW and CGA. Pt stands Comments sink side, but declines sink side ADLs. Pt performs ambulation more slowly today. OT- Balance Assessment Sitting Balance and Reactions Static Sitting Good Balance Ability Dynamic Sitting Good Balance Ability Standing Balance and Reactions Static Standing Fair Balance Ability Dynamic Standing Fair Balance Ability M8 OT- IP Objective Assessments Start: 11/18/24 14:05 Freq: Status: Active Protocol: Document 11/18/24 14:05 [id number] (Rec: 11/18/24 14:29 [facility]) OT Gross Range of Motion Upper Extremity Range of Motion Assessment Bilaterally Impaired ROM Impairments Against gravity pt demonstrates ~ 120 deg of shoulder flex B. When in gravity decreased position pt demonstrates WFL. Pt reports it is his back p! that limits his against gravity AROM. OT Strength Upper Extremity Strength Hand 5/5 Hand Cushion Builder Strength Hand Dominance Right Comments Strength Comments Pt declines UB strength testing as he is fearful it will increase his back p! OT-Muscle Tone Assessment Muscle Tone WNL Yes OT Sensation Assessment Comments Summary Comments No deficits noted Edema Edema Absent M9 OT- IP Assessment and Plan Start: 11/18/24 14:05 Freq: Status: Active Protocol: Document 11/19/24 12:46 [facility] (Rec: 11/19/24 13:03 [facility] Desktop) OT Summary Assessment and Plan Potential Rehabilitation Excellent Potential Analytic Complexity Low at Evaluation Summary OT Impairments Pain,Range of Motion,Strength,Functional Mobility, Grooming,Dressing,Toileting,Bathing,Toilet Transfers, Shower Transfers,Activity Tolerance Progress Towards Progressing Toward Goals Goals Assessment Summary Pt c/o increased pain today. Although being agreeable to participating in therapy, and initially agreeing to specifically work on LB AE dressing, pt's pain was a self limiting factor today. Pt continues to require total A or TLSO. OT educated significant other on how to don/doff. Pt performs bed mobility with CGA to MIN A. Pt performs functional t/fs with CGA-min A. OT educated pt and SO on use of LB AE for socks, shoes, and underpants/pants. Pt would benefit from additional education on LB AE. Pt would benefit from education on supine dressing techniques. Would recommend attempting to time therapy with medication for improved participation. Both pt and SO express concerns about pt d/c home with HH at this time. They are concerned that SO will not be able to help the pt as much as he will need. Pt would benefit from continued skilled OT services to address BADL/IADLs, activity tolerance, functional mobility, and strength. Pt reports PLOF as I or mod I with all BADL, heavy house chores, yard work , daily walking of his dog, and daily driving. Pt would benefit SNF for therapy to address these deficits and promote return towards PLOF upon d/c. Goals Grooming Goal Independent Dressing Goal Independent,Dressing Stick,Long Handled Shoe Horn, Obstetrics Gynecology Md,Sock Aid Toileting Goal Independent Bathing Goal Independent Toilet Transfer Goal Independent Shower Transfer Goal Independent Days to Meet Goals 10 Frequency of Treatment Frequency Of Once a Day Treatment Other frequency 5x/wk Treatment Plan OT Treatment Plan ADL Training,Functional Mobility,Therapeutic Exercises, Patient/Family Education,Discharge Planning Other Treatment LB AE education, EC techniques, supine dressing Recommendations and techniques Next Treatment Focus Discharge Recommendations OT Discharge SNF Rehab Recommendations Transportation Needs Private Vehicle,Wheelchair/Cabulance,Stretcher/ at Discharge Ambulance
--- NOTE | 2024-11-19 14:15 | PT.IPTN ---
Current Diagnoses Myocardial infarction type 2 (11/17/24) Low back pain, unspecified (11/17/24) Unspecified convulsions (11/17/24) Unspecified fracture of first lumbar vertebra, initial encounter for closed fracture (11/17/24) Other specified personal risk factors, not elsewhere classified (11/17/24) Physical Therapy Treatment Note M2 PT-IP Current Condition Start: 11/18/24 10:43 Freq: NEEDED Status: Active Protocol: Document 11/18/24 10:18 MB (Rec: 11/18/24 11:00 MB Desktop) Physical Therapy Current Condition Current Condition Evaluation Date 11/18/24 Treatment Diagnosis Seizure, MA, L1 compression fracture M3 PT-IP Subjective Start: 11/18/24 10:43 Freq: NEEDED Status: Active Protocol: Document 11/19/24 14:15 AB (Rec: 11/19/24 17:21 AB [id number]) Subjective Physical Therapy Visit Type Type Treatment Note Visit Start Time 14:15 Visit Stop Time 14:40 Number of AUTOMOBILE RENTAL CLERK Visits 0 Physical Therapy Visit Comments Patient Comments agreeable to do PT Therapy Pain Assessment Pain When Pain Assessed During Mobility Pain Present Pain Present Pain Reported Location Back Intensity 10 Scale Used Numeric (0 - 10) Pain Management Distraction,Modification of Treatment,Re-positioning, Techniques Timing of Activity with Medications M4 PT-IP Mobility and Gait Start: 11/18/24 10:43 Freq: NEEDED Status: Active Protocol: Document 11/19/24 14:15 AB (Rec: 11/19/24 17:21 AB [id number]) PT-Bed Mobility Assessment Rolling Type of Rolling Log Rolling Level of Assist Maximal Assistance Supine to Sit Supine to Sit Maximum Assistance,1 Person Assistance,Head of Bed Elevated,Bedrails Sit to Supine Sit to Supine Maximum Assistance,1 Person Assistance,Bedrails PT-Transfer Assessment Sit to and From Stand Sit to and from Moderate Assistance,1 Person Assistance,Use of Upper Stand Extremities Equipment Transfer Assistive Gait Belt,Front Wheeled Walker Device Orthotic/Prosthetic No Devices or Brace: Comments Mobility Comments pt in bed and agreeable to do PT. log roll supine to sit max A and max cues. Assisted with TLSO brace. c/o increase back pain. sit to stand mod A and max cues and ambulated in room using FWW mod A ~ 35 ft. pt requested to go back to bed. sit to supine max A and max cues. positioned pt in bed. call light and table placed next to pt. Gait Assessment Gait Gait Assistance Moderate Assistance,1 Person Assist Required: Distance (Feet) 35 Able to Maintain Yes Weight Bearing Status During Gait Assistive Devices Assistive Device Gait Belt,Front Wheeled Walker Orthotic/Prosthetic No Devices or Brace: Gait Deviations General Gait Pattern Decreased Stride Length,Decreased Feet Clearance Factors Limiting Gait Function Factors Limiting Decreased Activity Tolerance,Decreased Strength,Limited Gait Function Range of Motion,Pain,Poor Balance,Poor Safety Awareness M5 PT-IP Objective Assessments Start: 11/18/24 10:43 Freq: NEEDED Status: Active Protocol: Document 11/18/24 10:18 MB (Rec: 11/18/24 11:00 MB Desktop) Orientation Orientation/Cognition Level of Alertness Alert Orientation Name,Birthday,Day of Week,Place,Situation Language Function No Deficits Noted Ability Safety Awareness Decreased Safety Awareness Memory Description No Deficits Noted Gross Range of Motion Upper Extremity ROM Impairments Defer to OT Lower Extremity ROM Impairments Pt can only tolerate functional assessment and no deficits noted today Strength Comments Strength Comments Pt can only tolerate functional assessment and no deficits noted today Coordination Assessment Assessment Coordination NT Comments Sensation Assessment Comments Sensation Comments NT: pt cannot tolerate today Muscle Tone Muscle Tone WNL Yes M6 PT-IP Treatment Start: 11/18/24 10:43 Freq: NEEDED Status: Active Protocol: Document 11/19/24 14:15 AB (Rec: 11/19/24 17:21 AB [id number]) Physical Therapy Treatment Education Education Provided Precautions,Safety M7 PT-IP Assessment and Plan Start: 11/18/24 10:43 Freq: NEEDED Status: Active Protocol: Document 11/19/24 14:15 AB (Rec: 11/19/24 17:21 AB [id number]) PT Summary Assessment and Plan Potential Rehabilitation Fair Potential Summary Impairments Pain,ROM,Strength,Balance,Coordination,Sensation,Tone, Cognition,Bed Mobility,Transfers,Gait,Activity Tolerance Progress Towards Slow Progress due to Pain Goals Assessment Summary pt with increase LBP and unable to tolerate much activity due to pain but able to ambulate this afternoon using FWW mod A and cues ~ 35 ft. pt needs assistance at this time. Currently, pt does not have any assistance at home and pt stated that he is actually his spouse's caregiver. pt will require SNF rehab to improve overall strength and mobility. Goals Bed Mobility Goal Independent Transfer Goal Independent,Front Wheeled Walker Gait Goal Independent,Front Wheel Walker Gait Distance 75 Other Goals Pt will perform log rolling with I to protect spinal fracture. Pt will ascend and descend platform step with RW and no more than superv to allow safe home entrance. Days to Meet Goals 5 Frequency of Treatment Frequency Of Once a Day Treatment Treatment Plan Physical Therapy Bed Mobility Training,Transfer Training,Gait Training, Treatment Plan Therapeutic Exercise,Balance Retraining,Discharge Planning,Hot or Cold Pack,Neuromuscular Re-ed, Coordination Retraining,Manual Therapy Precautions Lumbar Precautions Log Roll,No Twisting,Limit Bending,Lifting Restriction of 10 lbs Brace TLSO brace Recommendations To Nursing Amount of Assist 1 Person Assist Needed Discharge Recommendations PT Discharge SNF Rehab Recommendations Transportation Needs Wheelchair/Cabulance at Discharge - PT assist 1
--- NOTE | 2024-11-19 16:07 | CM.DPNOTE ---
DCP note [employer] reviewed EMR per provider/OT/PT. rec SNF placement. 3rd midnight of INPT=. [employer] met with pt and spouse in room. reviewed DCP options. preference for [facility] if able to accept. [employer] sent referral to Darcy from . per Darcy, not sure how long he will be skillable but can acccept pending PT/OT notes/provider rec SNF. [employer] completed PASRR, signature needed P: dc time pending to . CM team will continue to follow closely for DCP coordination DANGELO Chu
--- NOTE | 2024-11-19 16:30 | P.PN_ITS ---
Subjective Subjective Date Patient Seen: 11/19/24 Interval history: Chief complaint: New onset seizure x1 back pain with fracture of L1 of the L-spine History of present illness: 11/18: 69 year old male with history of chronic back pain, GERD, hyperlipidemia, BPH, presents to the ER with with possible seizure. He was found by his fianc?e with foaming in his mouth at the recliner. The patient denies any history of seizure. He was postictally confused for few minutes and had bitten his tongue. Denies any incontinence. The patient unable to recall the event. Denies any neurodeficits including headache, blurry vision, slurred speech, numbness or weakness of his extremities or recent head injuries. Laboratory was unremarkable except sodium 133, glucose 156, lactate 2.1, calcium 9.4, troponin 0.0 51, prolactin 19.9, UA positive for UTI and toxicology positive for oxycodone and marijuana. Chest x-ray negative. Abdominal CT scan shows L1 compression fracture with undetermined etiology but probably acute. Cholelithiasis. CT of the brain shows no acute intracranial pathology. Hospital course: 11/18: No further episodes of seizure and patient is not postictal no episodes of chest pain and troponin has trended down. Patient was evaluated by Cardiology Dr. Finley: ?69-year-old man with no significant past cardiac history presented to the emergency room after a 1st witnessed episode of seizure-fixed case, froth through the mouth, lip bite, unintentional motor activity. On arrival he was found to have elevated troponin. No associated symptoms of chest pain shortness of breath noted before the seizure activity or after the seizure activity. He did not complain of any symptoms in the emergency room and was very comfortable. EKG did not show any evidence of acute ischemic injury except for prolonged QT interval and elevated troponin. Based upon history this is type 2 myocardial infarction most likely due to demand ischemia during the seizure activity. Patient has history of chronic pain syndrome and takes high-dose oxycodone which can potentially prolong QT interval and cause torsade de pointes. No ventricular activity has been noticed during the hospitalization. Patient also stated that he did not take he has daily dose of oxycodone yesterday. A drug withdrawal can potentially cause seizure activity. Troponin levels are now trending down and patient is asymptomatic. ? Discussion with Dr. Finley who recommended pharmacologic stress testing if possible, however patient is in the severe pain it would not be able to endure lying on the flat surface of the nuclear medicine scan. Stress testing can be done after there is sufficient recovery from his lumbar fracture as an outpatient. Also recommended a 2 week cardiac monitoring 11/19: Patient is still having very significant pain started on calcitonin nasal. No episodes of seizure no episodes of chest pain, being fitted with a TLSO brace. Patient is unable to tolerate lying flat in the MRI scanner again due to his compression fracture. Patient was evaluated by orthopedic surgery: ?He has a significant lumbar spine fracture with slight retropulsion. He appears to be neurologically stable without new deficit. He was having problems mobilizing and has severe back pain. I have recommended that he use his talus whenever he is out of bed in a chair and when he mobilizes. I would concur that he needs to go to rehab in order to work on mobilization and ambulation. He should use his brace on a full-time basis. He should get lumbar spine x-rays in 1-2 weeks for follow up. ? Review of systems: No loss of consciousness no fever or chills No chest pain palpitations wheezing or shortness a breath No abdominal pain nausea vomiting No periods of confusion No paresthesia or paresis No urinary symptoms No incontinence of bowel or bladder Physical exam: Well-developed elderly male alert and cogent no acute distress HEENT unremarkable No labored respirations Abdomen benign Moves lower extremities without difficulty Assessment and plan: New onset seizure unclear etiology no recurrent seizures no anatomical abnormality seen on CT brain imaging * Seizure precautions * Neurology consult if there is a 2nd unprovoked seizure * Follow up Neurology outpatient for further workup * No driving until seen by Neurology * Diazepam as needed for seizures Type 2 non STEMI * Highly suspect Secondary to apnea/hypopnea favor over acute coronary syndrome * Echocardiogram negative for wall motion abnormalities but demonstrates right ventricular systolic pressure estimated to be at least 45 mmHg and grade 1 diastolic dysfunction * Follow up pharmacologic stress test as outpatient (patient unable to tolerate Lexiscan due to fracture of his lumbar spine) * Appreciate cardiology expertise * Statin aspirin and a beta-salazar Vertebral fracture L1: * TLSO brace and referral to acute rehab and daily nasal Miacalcin * Appreciate orthopedic expertise * Analgesia on chronic pain management: * Follow up with outpatient prescribing physician DVT prophylaxis: * Contraindicated due to risk of bleeding complications if seizure occurs Code status: * Full code blue 35 minutes were required in the management of this patient including [id number] evaluation examination review of chart consultation with consultants monitoring of laboratory and imaging Exam Vital Signs (past 8 hours): - 11/19/24 11:00 11/19/24 15:00 Temperature 97.2 F L 97 F L Pulse Rate 68 66 Respiratory Rate 18 16 Blood Pressure 155/81 H 157/81 H Pulse Oximetry 95 98 Oxygen Delivery Method Room Air Oxygen Flow Rate 0 Objective Labs 11/18/24 06:05 11/19/24 04:33 Labs: Laboratory Results - last 24 hr 11/19/24 04:33 Sodium 136 L Potassium 3.6 Chloride 103 Carbon Dioxide 24 BUN 13 Creatinine 0.68 Estimated GFR > 60 BUN/Creatinine Ratio 19.1 Glucose 128 H Calcium 9.0 PFSH Medical History (Updated 11/18/24 @ 08:11 by Clinton Finley MD) At risk for prolonged QT interval syndrome Social History marital status: household members: significant other other: Retired Musician Smoking Status: Current some day smoker substance use type: marijuana, opiates and painkillers during the past year weight has: remained stable Type(s) of exercise: independent ambulation Assessment & Plan Time-Based Coding :: [TOTAL MINUTES] spent with patient and on the chart (including review of chart, obtaining history, exam, reviewing outside data, placing orders, documenting exam and treatment plan, and counseling patient) on [DATE]. Quality VTE Deep Vein Thrombosis/Pulmonary Embolism Present on Admission: No
[2024-11-19] MEDS: METOPROLOL ER 25 MG TABLET PO (18:09)
[2024-11-20] VITALS (9 sets, daily range): BP systolic 144–198; BP diastolic 70–100; PULSE 59–75; RESP 16–20; TEMP 36.1–36.4; O2SAT 95–97
[2024-11-20] MEDS: OXYCODONE IR 5 MG TABLET 15 MG PO ×6 (02:43→21:21)
[2024-11-20] MEDS: ACETAMINOPHEN 325 MG TABLET 650 MG PO ×2 (06:42→22:59)
[2024-11-20] MEDS: METOPROLOL ER 25 MG TABLET PO (06:52)
[2024-11-20] MEDS: PANTOPRAZOLE DR 20 MG TABLET PO (10:12)
[2024-11-20] MEDS: TAMSULOSIN 0.4 MG CAPSULE 0.8 MG PO (10:12)
[2024-11-20] MEDS: ASPIRIN EC 81 MG TABLET PO (10:13)
[2024-11-20] MEDS: ATORVASTATIN 20 MG TABLET 80 MG PO (10:13)
[2024-11-20] MEDS: SODIUM CHLORIDE 0.9% FLUSH 10 ML IV ×3 (10:24→23:00)
--- NOTE | 2024-11-20 11:28 | CM.DPNOTE ---
Addendum entered by DANGELO Chu 11/20/24 13:19: ERP DEVELOPER emailed Phil at [facility] to cancel referral for now due to pt going to rehab [facility] Original Note: DCP note ERP DEVELOPER reviewed EMR per chart review/provider, pt cleared for dc medically. Per Darcy at , can accept tomorrow at 11am. Provider signed PASRR, placed behind FS. ERP DEVELOPER met with pt in room. updated on plan. in agreement. spoke with natalie Akbar on phone. in agreement with plan. ERP DEVELOPER answered questions to best of ability. P: dc tomorrow to at 11am. CM team will continue to follow closely for DCP coordination DANGELO Chu
--- NOTE | 2024-11-20 13:43 | P.PN_ITS ---
Subjective Subjective Date Patient Seen: 11/20/24 Interval history: Chief complaint: New onset seizure x1 back pain with fracture of L1 of the L-spine History of present illness: 11/18: 69 year old male with history of chronic back pain, GERD, hyperlipidemia, BPH, presents to the ER with with possible seizure. He was found by his fianc?e with foaming in his mouth at the recliner. The patient denies any history of seizure. He was postictally confused for few minutes and had bitten his tongue. Denies any incontinence. The patient unable to recall the event. Denies any neurodeficits including headache, blurry vision, slurred speech, numbness or weakness of his extremities or recent head injuries. Laboratory was unremarkable except sodium 133, glucose 156, lactate 2.1, calcium 9.4, troponin 0.0 51, prolactin 19.9, UA positive for UTI and toxicology positive for oxycodone and marijuana. Chest x-ray negative. Abdominal CT scan shows L1 compression fracture with undetermined etiology but probably acute. Cholelithiasis. CT of the brain shows no acute intracranial pathology. Hospital course: 11/18: No further episodes of seizure and patient is not postictal no episodes of chest pain and troponin has trended down. Patient was evaluated by Cardiology Dr. Finley: ?69-year-old man with no significant past cardiac history presented to the emergency room after a 1st witnessed episode of seizure-fixed case, froth through the mouth, lip bite, unintentional motor activity. On arrival he was found to have elevated troponin. No associated symptoms of chest pain shortness of breath noted before the seizure activity or after the seizure activity. He did not complain of any symptoms in the emergency room and was very comfortable. EKG did not show any evidence of acute ischemic injury except for prolonged QT interval and elevated troponin. Based upon history this is type 2 myocardial infarction most likely due to demand ischemia during the seizure activity. Patient has history of chronic pain syndrome and takes high-dose oxycodone which can potentially prolong QT interval and cause torsade de pointes. No ventricular activity has been noticed during the hospitalization. Patient also stated that he did not take he has daily dose of oxycodone yesterday. A drug withdrawal can potentially cause seizure activity. Troponin levels are now trending down and patient is asymptomatic. ? Discussion with Dr. Finley who recommended pharmacologic stress testing if possible, however patient is in the severe pain it would not be able to endure lying on the flat surface of the nuclear medicine scan. Stress testing can be done after there is sufficient recovery from his lumbar fracture as an outpatient. Also recommended a 2 week cardiac monitoring 11/19: Patient is still having very significant pain started on calcitonin nasal. No episodes of seizure no episodes of chest pain, being fitted with a TLSO brace. Patient is unable to tolerate lying flat in the MRI scanner again due to his compression fracture. Patient was evaluated by orthopedic surgery: ?He has a significant lumbar spine fracture with slight retropulsion. He appears to be neurologically stable without new deficit. He was having problems mobilizing and has severe back pain. I have recommended that he use his talus whenever he is out of bed in a chair and when he mobilizes. I would concur that he needs to go to rehab in order to work on mobilization and ambulation. He should use his brace on a full-time basis. He should get lumbar spine x-rays in 1-2 weeks for follow up. ? 11/20: Excruciating pain at this time curled up in a ball. No further seizures no episodes of chest pain Review of systems: No loss of consciousness no fever or chills No chest pain palpitations wheezing or shortness a breath No abdominal pain nausea vomiting No periods of confusion No paresthesia or paresis No urinary symptoms No incontinence of bowel or bladder Physical exam: Well-developed elderly male alert and cogent no acute distress HEENT unremarkable No labored respirations Abdomen benign Moves lower extremities without difficulty Assessment and plan: New onset seizure unclear etiology no recurrent seizures no anatomical abnormality seen on CT brain imaging * Seizure precautions * Neurology consult if there is a 2nd unprovoked seizure * Follow up Neurology outpatient for further workup * No driving until seen by Neurology * Diazepam as needed for seizures Type 2 non STEMI * Highly suspect Secondary to apnea/hypopnea favor over acute coronary syndrome * Echocardiogram negative for wall motion abnormalities but demonstrates right ventricular systolic pressure estimated to be at least 45 mmHg and grade 1 diastolic dysfunction * Follow up pharmacologic stress test as outpatient (patient unable to tolerate Lexiscan due to fracture of his lumbar spine) * Appreciate cardiology expertise * Statin aspirin and a beta-salazar Vertebral fracture L1: * TLSO brace and referral to acute rehab and daily nasal Miacalcin * Appreciate orthopedic expertise * Analgesia on chronic pain management: * Follow up with outpatient prescribing physician DVT prophylaxis: * Contraindicated due to risk of bleeding complications if seizure occurs Code status: * Full code blue 35 minutes were required in the management of this patient including [id number] evaluation examination review of chart consultation with consultants monitoring of laboratory and imaging Exam Vital Signs (past 8 hours): - 11/20/24 06:52 11/20/24 06:53 11/20/24 06:54 Temperature 96.9 F L Pulse Rate 68 68 67 Respiratory Rate 17 Blood Pressure 191/97 H 191/97 H 191/97 H Pulse Oximetry 97 Oxygen Flow Rate 0 11/20/24 07:44 11/20/24 08:00 11/20/24 12:00 Temperature 96.9 F L 96.9 F L Pulse Rate 67 59 L 65 Respiratory Rate 16 20 Blood Pressure 197/97 H 198/90 H 144/70 H Pulse Oximetry 96 95 Oxygen Flow Rate 0 0 Oxygen Delivery Method Room Air Oxygen Flow Rate 0 Objective Labs 11/18/24 06:05 11/19/24 04:33 [facility] Medical History (Updated 11/18/24 @ 08:11 by Clinton Finley MD) At risk for prolonged QT interval syndrome Social History marital status: household members: significant other other: Retired Musician Smoking Status: Current some day smoker substance use type: marijuana, opiates and painkillers during the past year weight has: remained stable Type(s) of exercise: independent ambulation Assessment & Plan Time-Based Coding :: [TOTAL MINUTES] spent with patient and on the chart (including review of chart, obtaining history, exam, reviewing outside data, placing orders, documenting exam and treatment plan, and counseling patient) on [DATE]. Quality VTE Deep Vein Thrombosis/Pulmonary Embolism Present on Admission: No
--- NOTE | 2024-11-20 14:30 | PT.IPTN ---
Current Diagnoses Myocardial infarction type 2 (11/17/24) Low back pain, unspecified (11/17/24) Unspecified convulsions (11/17/24) Unspecified fracture of first lumbar vertebra, initial encounter for closed fracture (11/17/24) Other specified personal risk factors, not elsewhere classified (11/17/24) Physical Therapy Treatment Note M2 PT-IP Current Condition Start: 11/18/24 10:43 Freq: NEEDED Status: Active Protocol: Document 11/18/24 10:18 MB (Rec: 11/18/24 11:00 MB Desktop) Physical Therapy Current Condition Current Condition Evaluation Date 11/18/24 Treatment Diagnosis Seizure, VA, L1 compression fracture M3 PT-IP Subjective Start: 11/18/24 10:43 Freq: NEEDED Status: Active Protocol: Document 11/20/24 14:30 AB (Rec: 11/20/24 16:21 AB [id number]) Subjective Physical Therapy Visit Type Type Treatment Note Visit Start Time 14:30 Visit Stop Time 14:50 Number of SUPERVISOR POST WAVE Visits 0 Physical Therapy Visit Comments Patient Comments agreeable to do PT; c/o LBP Therapy Pain Assessment Pain When Pain Assessed At Rest Pain Present Pain Present Pain Reported Location Back Scale Used increases with mobility Pain Behaviors Facial Grimacing,Guarding,Moaning Pain Management Distraction,Modification of Treatment,Re-positioning, Techniques Timing of Activity with Medications M4 PT-IP Mobility and Gait Start: 11/18/24 10:43 Freq: NEEDED Status: Active Protocol: Document 11/20/24 14:30 AB (Rec: 11/20/24 16:21 AB [id number]) PT-Bed Mobility Assessment Rolling Level of Assist Maximal Assistance Supine to Sit Supine to Sit Maximum Assistance Sit to Supine Sit to Supine Maximum Assistance PT-Transfer Assessment Sit to and From Stand Sit to and from Moderate Assistance,Maximum Assistance,1 Person Stand Assistance,Use of Upper Extremities Equipment Transfer Assistive Gait Belt,Front Wheeled Walker Device Orthotic/Prosthetic Yes Devices or Brace: Comments Mobility Comments pt in bed and agreed to do PT. continues to c/o LBP. completed log roll supine to sit max A and max cues. assisted with donning of TLSO brace. pt with heavy UE support in sitting on EOB due to LBP and unable to manage TLSO brace. sit to stand mod A to max A and ambulated in room ~ 30 ft using FWW mod A and cues. slow unsteady gait with decrease LE elevation and step length. pt requested to go back to bed. sit to supine max A and max cues. positioned pt in bed. call light and table placed within reach. Gait Assessment Gait Gait Assistance Moderate Assistance,1 Person Assist Required: Distance (Feet) 30 Able to Maintain Yes Weight Bearing Status During Gait Assistive Devices Assistive Device Gait Belt,Front Wheeled Walker Orthotic/Prosthetic No Devices or Brace: Gait Deviations General Gait Pattern Decreased Stride Length,Decreased Feet Clearance,Step- to Gait Factors Limiting Gait Function Factors Limiting Decreased Activity Tolerance,Decreased Strength,Limited Gait Function Range of Motion,Pain,Poor Balance,Poor Safety Awareness M5 PT-IP Objective Assessments Start: 11/18/24 10:43 Freq: NEEDED Status: Active Protocol: Document 11/18/24 10:18 MB (Rec: 11/18/24 11:00 MB Desktop) Orientation Orientation/Cognition Level of Alertness Alert Orientation Name,Birthday,Day of Week,Place,Situation Language Function No Deficits Noted Ability Safety Awareness Decreased Safety Awareness Memory Description No Deficits Noted Gross Range of Motion Upper Extremity ROM Impairments Defer to OT Lower Extremity ROM Impairments Pt can only tolerate functional assessment and no deficits noted today Strength Comments Strength Comments Pt can only tolerate functional assessment and no deficits noted today Coordination Assessment Assessment Coordination NT Comments Sensation Assessment Comments Sensation Comments NT: pt cannot tolerate today Muscle Tone Muscle Tone WNL Yes M6 PT-IP Treatment Start: 11/18/24 10:43 Freq: NEEDED Status: Active Protocol: Document 11/20/24 14:30 AB (Rec: 11/20/24 16:21 AB [id number]) Physical Therapy Treatment Education Education Provided Precautions,Safety M7 PT-IP Assessment and Plan Start: 11/18/24 10:43 Freq: NEEDED Status: Active Protocol: Document 11/20/24 14:30 AB (Rec: 11/20/24 16:21 AB [id number]) PT Summary Assessment and Plan Potential Rehabilitation Fair Potential Summary Impairments Pain,ROM,Strength,Balance,Coordination,Sensation,Tone, Cognition,Bed Mobility,Transfers,Gait,Activity Tolerance Progress Towards Slow Progress due to Pain Goals Assessment Summary pt continues to c/o increase low back pain limiting mobility. pt able to ambulate today using FWW ~ 30 ft mod A and cues. pt will need 24/ assist and will benefit from SNF rehab. Goals Bed Mobility Goal Independent Transfer Goal Independent,Front Wheeled Walker Gait Goal Independent,Front Wheel Walker Gait Distance 75 Other Goals Pt will perform log rolling with I to protect spinal fracture. Pt will ascend and descend platform step with RW and no more than superv to allow safe home entrance. Days to Meet Goals 5 Frequency of Treatment Frequency Of Once a Day Treatment Treatment Plan Physical Therapy Bed Mobility Training,Transfer Training,Gait Training, Treatment Plan Therapeutic Exercise,Balance Retraining,Discharge Planning,Hot or Cold Pack,Neuromuscular Re-ed, Coordination Retraining,Manual Therapy Precautions Lumbar Precautions Log Roll,No Twisting,Limit Bending,Lifting Restriction of 10 lbs Brace TLSO brace Recommendations To Nursing Amount of Assist 1 Person Assist Needed Discharge Recommendations PT Discharge SNF Rehab Recommendations Transportation Needs Wheelchair/Cabulance at Discharge - PT assist 1
--- NOTE | 2024-11-20 15:14 | OT.IP.TRT ---
Current Diagnoses Myocardial infarction type 2 (11/17/24) Low back pain, unspecified (11/17/24) Unspecified convulsions (11/17/24) Unspecified fracture of first lumbar vertebra, initial encounter for closed fracture (11/17/24) Other specified personal risk factors, not elsewhere classified (11/17/24) Occupational Therapy Treatment Note M2 OT-IP Current Condition Start: 11/18/24 14:05 Freq: Status: Active Protocol: Document 11/18/24 14:05 YANET (Rec: 11/18/24 14:29 YANET Desktop) Occupational Therapy Current Condition Current Condition Evaluation Date 11/18/24 Treatment Diagnosis seizue, CT type II, L1 compression fx, decreased self care Diagnosis Onset Date 11/17/24 Post Operative Precautions Lumbar Precautions Log Roll,No Twisting,Limit Bending M3 OT- IP Subjective and Pain Start: 11/18/24 14:05 Freq: Status: Active Protocol: Document 11/20/24 15:21 [facility] (Rec: 11/20/24 15:27 [facility] Desktop) OT- Subjective Occupational Therapy Visit Type Type Treatment Note Visit Start Time 15:05 Visit Stop Time 15:14 Occupational Therapy Visit Comments Patient Comments Pt too tired to get up again as just completed PT. Agreed to go over ADL needs. Patient/Caregiver TO get better. Goals OT Pain Assessment Pain When Pain Assessed During Mobility Pain Present Pain Present Pain Reported Location Back Pain Behaviors Facial Grimacing,Holding Area M4 OT- IP ADL's Start: 11/18/24 14:05 Freq: Status: Active Protocol: Document 11/20/24 15:21 [facility] (Rec: 11/20/24 15:27 [facility] Desktop) OT [id number] Comments OT Self-Feeding not observed Comments OT ADL-Grooming Comments OT Grooming Comments Not observed. OT ADL-Oral Care Comments Oral Care Comments Not observed. OT ADL-Dressing Comments OT Dressing Comments Spoke of getting LB dressing equipment and to dress the left side first and take out last as having more difficulty to move his LLE due to his back pain. Also spoke of option to get dressed while supine in bed. Spoke of strategies to be/doff the TLSO and having the straps fasten to to slip in over his head first and then tighten the sides. Pt states not wanting to try to do it at this time. OT ADL-Toileting Comments OT Toileting Spoke of getting a BSC to increased ease and safety to Comments stand. Use of urinal as well as needed. M5 OT- IP IADL's Start: 11/18/24 14:05 Freq: Status: Active Protocol: Document 11/18/24 14:05 YANET (Rec: 11/18/24 14:29 [facility] Desktop) OT-Instrumental Activities of Daily Living Home Safety Awareness Awareness of Need Good Awareness for Assistance at Home Ability to Problem Able to Problem Solve Solve Emergency Situations Medication Management Medication No Deficits Identified Management Money Management Money Management No Deficits Identified Meal Preparation Meal Preparation Caregiver Provides Assist Meal Preparation pt primarily performs but would need assist at this Comments time. Bead Wire Taper Bead Wire Taper Caregiver Provides Assist Driving Driving Caregiver Provides Assist Driving Comments pt primarily performs but would need assist at this time. M6 OT- IP Functional Cognition Start: 11/18/24 14:05 Freq: Status: Active Protocol: Document 11/18/24 14:05 YANET (Rec: 11/18/24 14:29 [facility] Cognitive Factors Limiting Selfcare Function Cognitive Ability Level of Alertness Alert Patient Orientation Name,Age,Birthday,Month,Date,Year,Day of Week,Place, Situation Attention Span Capable of Focused Attention,Capable of Sustained Ability Attention Ability to Follow Able to Follow One Step Commands,Able to Follow Multi- Commands Step Commands Memory Description No Deficits Noted Safety Awareness No Deficits Noted Problem Solving No deficits Noted Ability Executive Function No Deficits Noted Ability Abstract Thinking No Deficits Noted Ability OT- Vision and Hearing OT- Hearing Assessment OT- Hearing WFL Assessment OT- Vision Assessment Visual Acuity WFL,Glasses For Reading M7 OT- IP Mobility and Balance Start: 11/18/24 14:05 Freq: Status: Active Protocol: Document 11/19/24 12:46 YANET (Rec: 11/19/24 13:03 [facility] Desktop) OT- Bed Mobility Assessment Rolling Type of Rolling Log Rolling,Roll to Right Level of Assistance Contact Guard Assistance,1 Person Assistance Supine to Sit Supine to Sit Assist Minimal Assistance,1 Person Assistance Sit to Supine Sit to Supine Assist Contact Guard Assistance,1 Person Assistance Scooting Scooting to Edge of Contact Guard Assistance Bed OT-Transfer Assessment Sit to and From Stand Sit to and from Contact Guard Assistance,1 Person Assistance,Use of Stand Upper Extremities Transfers Transfer Ability Contact Guard Assistance,Minimal Assistance,1 Person Assistance,Use of Upper Extremities Technique Transfer Destination Bed Transfer Technique Stand Step Pivot Devices Transfer Assistive Gait Belt,Front Wheeled Walker Devices Comments Mobility Comments OT provides vcs for log rolling technique. Pt performs with S. Pt requires total A to don/doff TLSO brace. Pt with increased c/o pain today. Yesterday, he had immediate relief after donning TLSO. Pt requests to walk around the room, important for improved I with BADLs/IADLs, however, OT is unable to persuade pt to participate in ADLs at this time. Pt requires vcs for hand placement to push up from bed and not the walker, and to reach back to the bed when returning to sitting. OT- Gait Assessment Gait Gait Assistance Contact Guard Assist Required: Distance (Feet) 30 Assistive Devices Assistive Device Gait Belt,Front Wheeled Walker Comments Gait Ability Pt amb throughout his room with FWW and CGA. Pt stands Comments sink side, but declines sink side ADLs. Pt performs ambulation more slowly today. OT- Balance Assessment Sitting Balance and Reactions Static Sitting Good Balance Ability Dynamic Sitting Good Balance Ability Standing Balance and Reactions Static Standing Fair Balance Ability Dynamic Standing Fair Balance Ability M8 OT- IP Objective Assessments Start: 11/18/24 14:05 Freq: Status: Active Protocol: Document 11/18/24 14:05 YANET (Rec: 11/18/24 14:29 [facility] OT Gross Range of Motion Upper Extremity Range of Motion Assessment Bilaterally Impaired ROM Impairments Against gravity pt demonstrates ~ 120 deg of shoulder flex B. When in gravity decreased position pt demonstrates WFL. Pt reports it is his back p! that limits his against gravity AROM. OT Strength Upper Extremity Strength Hand 5/5 Hand Supervising Editor Trailer Strength Hand Dominance Right Comments Strength Comments Pt declines UB strength testing as he is fearful it will increase his back p! OT-Muscle Tone Assessment Muscle Tone WNL Yes OT Sensation Assessment Comments Summary Comments No deficits noted Edema Edema Absent M9 OT- IP Assessment and Plan Start: 11/18/24 14:05 Freq: Status: Active Protocol: Document 11/20/24 15:21 [facility] (Rec: 11/20/24 15:27 [facility] Desktop) OT Summary Assessment and Plan Potential Rehabilitation Excellent Potential Analytic Complexity Low at Evaluation Summary OT Impairments Pain,Range of Motion,Strength,Functional Mobility, Grooming,Dressing,Toileting,Bathing,Toilet Transfers, Shower Transfers,Activity Tolerance Progress Towards Progressing Toward Goals,Slow Progress due to Pain Goals Assessment Summary Able to talk to pt of OT equipment needs and techniques especially for dressing and TLSO management. Pt just finished seeing PT and too tired and in pain to get up again. Pt to go to skilled rehab when medically stable. Goals Grooming Goal Independent Dressing Goal Independent,Dressing Stick,Long Handled Shoe Horn, Tech Brazer Tester,Sock Aid Toileting Goal Independent Bathing Goal Independent Toilet Transfer Goal Independent Shower Transfer Goal Independent Days to Meet Goals 10 Frequency of Treatment Other frequency 5x/wk Treatment Plan OT Treatment Plan ADL Training,Functional Mobility,Therapeutic Exercises, Patient/Family Education,Discharge Planning Other Treatment LB AE education, EC techniques, supine dressing Recommendations and techniques Next Treatment Focus Discharge Recommendations OT Discharge SNF Rehab Recommendations Home Equipment Needs LB dressing equipment, BSC Transportation Needs Private Vehicle,Wheelchair/Cabulance at Discharge
--- NOTE | 2024-11-20 16:08 | PC.NURSE ---
Pt resting at intervals. States discomfort in back & head is 8-9 Med as per orders w/ minimal relief. Tele SR per ICU staff. SL intact/patent. Call light w/in reach, pt calls appropriately for needs. Continue w/plan of care.
[2024-11-21] VITALS (8 sets, daily range): BP systolic 130–206; BP diastolic 69–100; PULSE 58–71; RESP 12–22; TEMP 35.9–36.2; O2SAT 96
[2024-11-21] MEDS: HYDROMORPHONE 2 MG TABLET PO (01:00)
[2024-11-21] MEDS: OXYCODONE IR 5 MG TABLET 15 MG PO ×2 (02:13→05:36)
[2024-11-21] MEDS: ACETAMINOPHEN 325 MG TABLET 650 MG PO ×2 (05:37→17:32)
[2024-11-21] MEDS: TAMSULOSIN 0.4 MG CAPSULE 0.8 MG PO (09:32)
[2024-11-21] MEDS: PANTOPRAZOLE DR 20 MG TABLET PO (09:32)
[2024-11-21] MEDS: GABAPENTIN 100 MG CAPSULE PO ×3 (09:32→21:33)
[2024-11-21] MEDS: ATORVASTATIN 20 MG TABLET 80 MG PO (09:32)
[2024-11-21] MEDS: METOPROLOL ER 25 MG TABLET PO (09:33)
[2024-11-21] MEDS: OXYCODONE IR 5 MG TABLET 20 MG PO ×4 (09:33→21:34)
[2024-11-21] MEDS: ASPIRIN EC 81 MG TABLET PO (09:33)
[2024-11-21] MEDS: CALCITONIN,SALMON, NASAL SPRAY 1 SPRAYS NASAL (09:34)
[2024-11-21] MEDS: SODIUM CHLORIDE 0.9% FLUSH 10 ML IV (09:34)
[2024-11-21] MEDS: DEXAMETHASONE 10 MG/ML VIAL 6 MG IV (09:34)
--- NOTE | 2024-11-21 10:53 | PC.NURSE ---
Addendum entered by Kiarra Welch R.N. 11/21/24 14:50: Patient incontinent of large amount of soft brown stool. Patients bedding changed and he followed some commands, but has a hard time with others. New brief applied to patient with chux pad and green pad under his bottom. Eating at meals and feeding himself. Resting comfortably with a warm blanket now. Original Note: Patients systolic blood pressure around 200, notified in person. He has stopped patients discharge to SNF for today. Oxycodone was increased to 20mg every 4 hours, he started gabapentin, and was given a 1 time dose of decadron. He is resting comfortably at this time. Will recheck his pain level and blood pressure again soon. He is able to move around with physical therapy.
--- NOTE | 2024-11-21 15:01 | PT.IPTN ---
Current Diagnoses Myocardial infarction type 2 (11/17/24) Low back pain, unspecified (11/17/24) Unspecified convulsions (11/17/24) Unspecified fracture of first lumbar vertebra, initial encounter for closed fracture (11/17/24) Other specified personal risk factors, not elsewhere classified (11/17/24) Physical Therapy Treatment Note M2 PT-IP Current Condition Start: 11/18/24 10:43 Freq: NEEDED Status: Active Protocol: Document 11/18/24 10:18 MB (Rec: 11/18/24 11:00 MB Desktop) Physical Therapy Current Condition Current Condition Evaluation Date 11/18/24 Treatment Diagnosis Seizure, [place], L1 compression fracture M3 PT-IP Subjective Start: 11/18/24 10:43 Freq: NEEDED Status: Active Protocol: Document 11/21/24 14:34 MB (Rec: 11/21/24 15:01 MB Desktop) Therapy Pain Assessment Pain When Pain Assessed At Rest Pain Present Pain Present Pain Reported Location Back Intensity 7 Scale Used Increases with mobility, pain medication 30' before tx Pain Behaviors Facial Grimacing,Guarding,Moaning Pain Management Distraction,Modification of Treatment,Re-positioning, Techniques Timing of Activity with Medications M4 PT-IP Mobility and Gait Start: 11/18/24 10:43 Freq: NEEDED Status: Active Protocol: Document 11/21/24 14:34 MB (Rec: 11/21/24 15:01 MB Desktop) PT-Bed Mobility Assessment Rolling Type of Rolling Log Rolling,Roll to Right,Roll to Left,Bilateral Level of Assist Standby Assistance Supine to Sit Supine to Sit Standby Assistance,Bedrails Sit to Supine Sit to Supine Standby Assistance Scooting Scooting to Edge of Standby Assistance Bed Scooting Up and Down Standby Assistance in Bed PT-Transfer Assessment Sit to and From Stand Sit to and from Contact Guard Assistance,1 Person Assistance,Use of Stand Upper Extremities Equipment Transfer Assistive Gait Belt,Front Wheeled Walker Device Orthotic/Prosthetic Yes Devices or Brace: Transfers Transfer Destination Bed Transfer Technique Ambulation Transfer Ability Level of Assist Contact Guard Assistance,1 Person Assistance,Use of Upper Extremities Comments Mobility Comments PT hands pt TLSO and hooks both top straps to sternal piece. After set-up assistance, extensive cues and occ tactile assistance for donning TLSO in sitting to start and completing in standing. Pt is able to doff after back to EOB and PT places on chair Gait Assessment Gait Gait Assistance Contact Guard Assist,1 Person Assist Required: Distance (Feet) 30 Assistive Devices Assistive Device Gait Belt,Front Wheeled Walker Orthotic/Prosthetic No Devices or Brace: Gait Deviations General Gait Pattern Decreased Stride Length,Decreased Feet Clearance,Step- to Gait Factors Limiting Gait Function Factors Limiting Decreased Activity Tolerance,Decreased Sensation, Gait Function Decreased Strength,Pain Comments Gait Comments 30'x2 with standing rest break against the wall with walker. Pt and OT also perform self-care tasks at the sink M5 PT-IP Objective Assessments Start: 11/18/24 10:43 Freq: NEEDED Status: Active Protocol: Document 11/18/24 10:18 MB (Rec: 11/18/24 11:00 MB Desktop) Orientation Orientation/Cognition Level of Alertness Alert Orientation Name,Birthday,Day of Week,Place,Situation Language Function No Deficits Noted Ability Safety Awareness Decreased Safety Awareness Memory Description No Deficits Noted Gross Range of Motion Upper Extremity ROM Impairments Defer to OT Lower Extremity ROM Impairments Pt can only tolerate functional assessment and no deficits noted today Strength Comments Strength Comments Pt can only tolerate functional assessment and no deficits noted today Coordination Assessment Assessment Coordination NT Comments Sensation Assessment Comments Sensation Comments NT: pt cannot tolerate today Muscle Tone Muscle Tone WNL Yes M6 PT-IP Treatment Start: 11/18/24 10:43 Freq: NEEDED Status: Active Protocol: Document 11/21/24 14:34 MB (Rec: 11/21/24 15:01 MB Desktop) Physical Therapy Treatment Education Education Provided Precautions,Safety Other Treatments Other Treatment Ongoing log rolling and TLSO training Performed M7 PT-IP Assessment and Plan Start: 11/18/24 10:43 Freq: NEEDED Status: Active Protocol: Document 11/21/24 14:34 MB (Rec: 11/21/24 15:01 MB Desktop) PT Summary Assessment and Plan Potential Rehabilitation Fair Potential Status of Condition Evolving at Evaluation Summary Impairments Pain,ROM,Strength,Balance,Coordination,Bed Mobility, Transfers,Gait,Activity Tolerance Progress Towards Slow Progress due to Pain Goals Assessment Summary Progression with bed mobility, transfers, TLSO donning and gait today. Pain con't to be high and worse with mobility. Pt makes a good effort with PT. Goals Bed Mobility Goal Independent Transfer Goal Independent,Front Wheeled Walker Gait Goal Independent,Front Wheel Walker Gait Distance 75 Other Goals Pt will perform log rolling with I to protect spinal fracture. Pt will ascend and descend platform step with RW and no more than superv to allow safe home entrance. Days to Meet Goals 5 Frequency of Treatment Frequency Of Once a Day Treatment Treatment Plan Physical Therapy Bed Mobility Training,Transfer Training,Gait Training, Treatment Plan Therapeutic Exercise,Balance Retraining,Discharge Planning,Hot or Cold Pack,Neuromuscular Re-ed, Coordination Retraining,Manual Therapy Precautions Lumbar Precautions Log Roll,No Twisting,Limit Bending,Lifting Restriction of 10 lbs Brace TLSO brace Recommendations To Nursing Amount of Assist 1 Person Assist Needed Discharge Recommendations PT Discharge SNF Rehab Recommendations Transportation Needs Wheelchair/Cabulance at Discharge - PT assist x1
--- NOTE | 2024-11-21 15:10 | OT.IP.TRT ---
Current Diagnoses Myocardial infarction type 2 (11/17/24) Low back pain, unspecified (11/17/24) Unspecified convulsions (11/17/24) Unspecified fracture of first lumbar vertebra, initial encounter for closed fracture (11/17/24) Other specified personal risk factors, not elsewhere classified (11/17/24) Occupational Therapy Treatment Note M2 OT-IP Current Condition Start: 11/18/24 14:05 Freq: Status: Active Protocol: Document 11/18/24 14:05 YANET (Rec: 11/18/24 14:29 YANET Desktop) Occupational Therapy Current Condition Current Condition Evaluation Date 11/18/24 Treatment Diagnosis seizue, [place] type II, L1 compression fx, decreased self care Diagnosis Onset Date 11/17/24 Post Operative Precautions Lumbar Precautions Log Roll,No Twisting,Limit Bending M3 OT- IP Subjective and Pain Start: 11/18/24 14:05 Freq: Status: Active Protocol: Document 11/21/24 14:58 [facility] (Rec: 11/21/24 15:10 [facility] Desktop) OT- Subjective Occupational Therapy Visit Type Type Treatment Note Visit Start Time 14:28 Visit Stop Time 14:58 Occupational Therapy Visit Comments Patient Comments Pt in with PT when OT came in to see pt. Patient/Caregiver To get better. Goals OT Pain Assessment Pain When Pain Assessed During Mobility Pain Present Pain Present Pain Reported Location Back Intensity 8 Scale Used Numeric (0 - 10) M4 OT- IP ADL's Start: 11/18/24 14:05 Freq: Status: Active Protocol: Document 11/21/24 14:58 [facility] (Rec: 11/21/24 15:10 [facility] Desktop) OT ADL-Oral Care Comments Oral Care Comments Pt refusing at this time. OT ADL-Dressing General Eval Upper Body Dressing Maximum Assistance Ability Comments OT Dressing Comments Able to practice how to be/doff the TLSO. Having to readjust the brace longer for the pt. Pt having to try to be the brace with one hand at a time as in too much pain when letting go with both hands. Taught pt to have the straps still attached and to place the brace over his head and then fasten the side straps. Also educated pt when loosening the side string straps to velcro it on the brace so keep track of the straps later. M5 OT- IP IADL's Start: 11/18/24 14:05 Freq: Status: Active Protocol: Document 11/18/24 14:05 YANET (Rec: 11/18/24 14:29 [facility] Desktop) OT-Instrumental Activities of Daily Living Home Safety Awareness Awareness of Need Good Awareness for Assistance at Home Ability to Problem Able to Problem Solve Solve Emergency Situations Medication Management Medication No Deficits Identified Management Money Management Money Management No Deficits Identified Meal Preparation Meal Preparation Caregiver Provides Assist Meal Preparation pt primarily performs but would need assist at this Comments time. Byproducts Pump Operator Byproducts Pump Operator Caregiver Provides Assist Driving Driving Caregiver Provides Assist Driving Comments pt primarily performs but would need assist at this time. M6 OT- IP Functional Cognition Start: 11/18/24 14:05 Freq: Status: Active Protocol: Document 11/21/24 14:58 [facility] (Rec: 11/21/24 15:10 [facility] Desktop) Cognitive Factors Limiting Selfcare Function Cognitive Comments Cognitive Assessment Pt intact and able to follow commands for all needs. Comments M7 OT- IP Mobility and Balance Start: 11/18/24 14:05 Freq: Status: Active Protocol: Document 11/21/24 14:58 [facility] (Rec: 11/21/24 15:10 [facility] Desktop) OT- Bed Mobility Assessment Sit to Supine Sit to Supine Assist Standby Assistance,1 Person Assistance,Bedrails OT-Transfer Assessment Sit to and From Stand Sit to and from Contact Guard Assistance Stand Transfers Transfer Ability Contact Guard Assistance Technique Transfer Destination Bed Transfer Technique Stand Step Pivot Devices Transfer Assistive Front Wheeled Walker Devices Comments Mobility Comments Increased time and vc for technique of log rolling. CGA with the FWW and heavy use of his BUE on the FWW. Pt not up to doing grooming needs as unable to release his hands from the FWW without having excruciating pain. OT- Balance Assessment Sitting Balance and Reactions Static Sitting Good Balance Ability Dynamic Sitting Good Balance Ability Standing Balance and Reactions Static Standing Fair Balance Ability Dynamic Standing Fair Balance Ability M8 OT- IP Objective Assessments Start: 11/18/24 14:05 Freq: Status: Active Protocol: Document 11/18/24 14:05 YANET (Rec: 11/18/24 14:29 [email or web address] Desktop) OT Gross Range of Motion Upper Extremity Range of Motion Assessment Bilaterally Impaired ROM Impairments Against gravity pt demonstrates ~ 120 deg of shoulder flex B. When in gravity decreased position pt demonstrates WFL. Pt reports it is his back p! that limits his against gravity AROM. OT Strength Upper Extremity Strength Hand 5/5 Hand Electronic Resources Librarian Strength Hand Dominance Right Comments Strength Comments Pt declines UB strength testing as he is fearful it will increase his back p! OT-Muscle Tone Assessment Muscle Tone WNL Yes OT Sensation Assessment Comments Summary Comments No deficits noted Edema Edema Absent M9 OT- IP Assessment and Plan Start: 11/18/24 14:05 Freq: Status: Active Protocol: Document 11/21/24 14:58 [facility] (Rec: 11/21/24 15:10 [facility] Desktop) OT Summary Assessment and Plan Potential Rehabilitation Excellent Potential Analytic Complexity Low at Evaluation Summary OT Impairments Pain,Range of Motion,Strength,Functional Mobility, Grooming,Dressing,Toileting,Bathing,Toilet Transfers, Shower Transfers,Activity Tolerance Progress Towards Progressing Toward Goals Goals Assessment Summary Able to practice how to be/doff the TLSO with pt in addition to adjusting the TLSO. Pt able to also do log rolling and walk in the room with CGA. Pt to go to skilled rehab when medically stable. Goals Grooming Goal Independent Dressing Goal Independent,Dressing Stick,Long Handled Shoe Horn, Public Records Researcher,Sock Aid Toileting Goal Independent Bathing Goal Independent Toilet Transfer Goal Independent Shower Transfer Goal Independent Days to Meet Goals 10 Frequency of Treatment Other frequency 5x/wk Treatment Plan OT Treatment Plan ADL Training,Functional Mobility,Therapeutic Exercises, Patient/Family Education,Discharge Planning Other Treatment LB AE education, EC techniques, supine dressing Recommendations and techniques Next Treatment Focus Discharge Recommendations OT Discharge SNF Rehab Recommendations Home Equipment Needs LB dressing equipment, BSC Transportation Needs Wheelchair/Cabulance at Discharge
--- NOTE | 2024-11-21 16:23 | P.PN_ITS ---
Subjective Subjective Date Patient Seen: 11/21/24 Interval history: Chief complaint: New onset seizure x1 back pain with fracture of L1 of the L-spine History of present illness: 11/18: 69 year old male with history of chronic back pain, GERD, hyperlipidemia, BPH, presents to the ER with with possible seizure. He was found by his fianc?e with foaming in his mouth at the recliner. The patient denies any history of seizure. He was postictally confused for few minutes and had bitten his tongue. Denies any incontinence. The patient unable to recall the event. Denies any neurodeficits including headache, blurry vision, slurred speech, numbness or weakness of his extremities or recent head injuries. Laboratory was unremarkable except sodium 133, glucose 156, lactate 2.1, calcium 9.4, troponin 0.0 51, prolactin 19.9, UA positive for UTI and toxicology positive for oxycodone and marijuana. Chest x-ray negative. Abdominal CT scan shows L1 compression fracture with undetermined etiology but probably acute. Cholelithiasis. CT of the brain shows no acute intracranial pathology. Hospital course: 11/18: No further episodes of seizure and patient is not postictal no episodes of chest pain and troponin has trended down. Patient was evaluated by Cardiology Dr. Finley: ?69-year-old man with no significant past cardiac history presented to the emergency room after a 1st witnessed episode of seizure-fixed case, froth through the mouth, lip bite, unintentional motor activity. On arrival he was found to have elevated troponin. No associated symptoms of chest pain shortness of breath noted before the seizure activity or after the seizure activity. He did not complain of any symptoms in the emergency room and was very comfortable. EKG did not show any evidence of acute ischemic injury except for prolonged QT interval and elevated troponin. Based upon history this is type 2 myocardial infarction most likely due to demand ischemia during the seizure activity. Patient has history of chronic pain syndrome and takes high-dose oxycodone which can potentially prolong QT interval and cause torsade de pointes. No ventricular activity has been noticed during the hospitalization. Patient also stated that he did not take he has daily dose of oxycodone yesterday. A drug withdrawal can potentially cause seizure activity. Troponin levels are now trending down and patient is asymptomatic. ? Discussion with Dr. Finley who recommended pharmacologic stress testing if possible, however patient is in the severe pain it would not be able to endure lying on the flat surface of the nuclear medicine scan. Stress testing can be done after there is sufficient recovery from his lumbar fracture as an outpatient. Also recommended a 2 week cardiac monitoring 11/19: Patient is still having very significant pain started on calcitonin nasal. No episodes of seizure no episodes of chest pain, being fitted with a TLSO brace. Patient is unable to tolerate lying flat in the MRI scanner again due to his compression fracture. Patient was evaluated by orthopedic surgery: ?He has a significant lumbar spine fracture with slight retropulsion. He appears to be neurologically stable without new deficit. He was having problems mobilizing and has severe back pain. I have recommended that he use his talus whenever he is out of bed in a chair and when he mobilizes. I would concur that he needs to go to rehab in order to work on mobilization and ambulation. He should use his brace on a full-time basis. He should get lumbar spine x-rays in 1-2 weeks for follow up. ? 11/20: Excruciating pain at this time curled up in a ball. No further seizures no episodes of chest pain 11/21: Pain is continues to escalate and be incapacitating also causing blood pressure to exceed 200. Regimen was adjusted with the addition of gabapentin and IV dexamethasone today hopefully we can get better control on this acute pain Review of systems: No loss of consciousness no fever or chills No chest pain palpitations wheezing or shortness a breath No abdominal pain nausea vomiting No periods of confusion No paresthesia or paresis No urinary symptoms No incontinence of bowel or bladder Physical exam: Well-developed elderly male alert and cogent flushed faced in obvious pain HEENT unremarkable No labored respirations Abdomen benign Moves lower extremities without difficulty Assessment and plan: New onset seizure unclear etiology no recurrent seizures no anatomical abnormality seen on CT brain imaging * Seizure precautions * Neurology consult if there is a 2nd unprovoked seizure * Follow up Neurology outpatient for further workup * No driving until seen by Neurology * Diazepam as needed for seizures Type 2 non STEMI * Highly suspect Secondary to apnea/hypopnea favor over acute coronary syndrome * Echocardiogram negative for wall motion abnormalities but demonstrates right ventricular systolic pressure estimated to be at least 45 mmHg and grade 1 diastolic dysfunction * Follow up pharmacologic stress test as outpatient (patient unable to tolerate Lexiscan due to fracture of his lumbar spine) * Appreciate cardiology expertise * Statin aspirin and a beta-salazar Vertebral fracture L1: * TLSO brace and referral to acute rehab and daily nasal Miacalcin * Increase oxycodone to 20 mg * Add dexamethasone IV * Add gabapentin * Appreciate orthopedic expertise * Analgesia on chronic pain management: * Follow up with outpatient prescribing physician DVT prophylaxis: * Contraindicated due to risk of bleeding complications if seizure occurs Code status: * Full code blue Disposition: * Pain on not under control no transfer to rehab today * Transfer tomorrow if pain under control 35 minutes were required in the management of this patient including [id number] evaluation examination review of chart consultation with consultants monitoring of laboratory and imaging Exam Vital Signs (past 8 hours): - 11/21/24 09:00 11/21/24 12:00 Temperature 96.7 F L Pulse Rate 68 63 Respiratory Rate 22 17 Blood Pressure 140/69 Pulse Oximetry 96 Oxygen Flow Rate 0 Oxygen Delivery Method Room Air Oxygen Flow Rate 0 Objective Labs 11/18/24 06:05 11/19/24 04:33 [facility] Medical History (Updated 11/18/24 @ 08:11 by Clinton Finley MD) At risk for prolonged QT interval syndrome Social History marital status: household members: significant other other: Retired Musician Smoking Status: Current some day smoker substance use type: marijuana, opiates and painkillers during the past year weight has: remained stable Type(s) of exercise: independent ambulation Assessment & Plan Time-Based Coding :: [TOTAL MINUTES] spent with patient and on the chart (including review of chart, obtaining history, exam, reviewing outside data, placing orders, documenting exam and treatment plan, and counseling patient) on [DATE]. Quality VTE Deep Vein Thrombosis/Pulmonary Embolism Present on Admission: No
[2024-11-22] VITALS: BP 149/82; PULSE 66; RESP 17; TEMP 36.4; O2SAT 96
[2024-11-22] MEDS: ACETAMINOPHEN 325 MG TABLET 650 MG PO ×2 (00:47→05:02)
[2024-11-22] MEDS: OXYCODONE IR 5 MG TABLET 20 MG PO ×3 (00:48→09:15)
[2024-11-22] MEDS: SODIUM CHLORIDE 0.9% FLUSH 10 ML IV ×2 (00:50→09:15)
[2024-11-22 06:00] VITALS: BP 166/80; PULSE 66; RESP 16; TEMP 36.6; O2SAT 95
[2024-11-22 08:00] VITALS: BP 111/65; PULSE 72; RESP 16; TEMP 36; O2SAT 97
[2024-11-22] MEDS: ASPIRIN EC 81 MG TABLET PO (09:14)
[2024-11-22] MEDS: GABAPENTIN 100 MG CAPSULE PO (09:15)
[2024-11-22] MEDS: ATORVASTATIN 20 MG TABLET 80 MG PO (09:15)
[2024-11-22] MEDS: METOPROLOL ER 25 MG TABLET PO (09:15)
[2024-11-22] MEDS: PANTOPRAZOLE DR 20 MG TABLET PO (09:15)
[2024-11-22] MEDS: TAMSULOSIN 0.4 MG CAPSULE 0.8 MG PO (09:15)
[2024-11-22] MEDS: CALCITONIN,SALMON, NASAL SPRAY 1 SPRAYS NASAL (09:18)
--- NOTE | 2024-11-22 15:35 | PM.DS.IH.1 ---
History of Present Illness History of Present Illness Date Patient Seen: 11/22/24 Time Patient Seen: 08:40 Chief complaint: AMS Narrative: 69 years old male with history of chronic back pain, GERD, hyperlipidemia, BPH, presents to the ER with with possible seizure. He was found by his fianc?e with foaming in his mouth at the recliner. The patient denies any history of seizure. He was postictally confused for few minutes and had bitten his tongue. Denies any incontinence. The patient unable to recall the event. Denies any neurodeficits including headache, blurry vision, slurred speech, numbness or weakness of his extremities or recent head injuries. Laboratory was unremarkable except sodium 133, glucose 156, lactate 2.1, calcium 9.4, troponin 0.0 51, prolactin 19.9, UA positive for UTI and toxicology positive for oxycodone and marijuana. Chest x-ray negative. Abdominal CT scan shows L1 compression fracture with undetermined etiology but probably acute. Cholelithiasis. CT of the brain shows no acute intracranial pathology. Discharge Providers Provider Date of admission: 11/17/24 18:14 Discharge Date: 11/22/24 Primary care physician: Jak Razo MD Consults: 11/17/24 18:13 Consult to Occupational Therapy Evaluate & Treat Comment: Physician Instructions: Evaluate and treat Consult to Physical Therapy Evaluate & Treat Comment: Physician Instructions: Evaluate and Treat 11/17/24 22:49 Consult to Physical Therapy Evaluate & Treat Comment: Please fit with TLSO brace for acute L1 fracture Physician Instructions: Evaluate and Treat 11/21/24 11:18 Consult to Occupational Therapy Evaluate & Treat Comment: Physician Instructions: Evaluate and treat Discharge provider: Oscar Cota MD Summary Hospital Course Discharge Diagnosis: 1. New onset seizure unclear etiology 2. Type 2 non STEMI 3. Vertebral fracture L1 Hospital Course: Discussion with Dr. Finley who recommended pharmacologic stress testing if possible, however patient is in the severe pain it would not be able to endure lying on the flat surface of the nuclear medicine scan. Stress testing can be done after there is sufficient recovery from his lumbar fracture as an outpatient. Also recommended a 2 week cardiac monitoring ?69-year-old man with no significant past cardiac history presented to the emergency room after a 1st witnessed episode of seizure-fixed case, froth through the mouth, lip bite, unintentional motor activity. On arrival he was found to have elevated troponin. No associated symptoms of chest pain shortness of breath noted before the seizure activity or after the seizure activity. He did not complain of any symptoms in the emergency room and was very comfortable. EKG did not show any evidence of acute ischemic injury except for prolonged QT interval and elevated troponin. Based upon history this is type 2 myocardial infarction most likely due to demand ischemia during the seizure activity. Patient has history of chronic pain syndrome and takes high-dose oxycodone which can potentially prolong QT interval and cause torsade de pointes. No ventricular activity has been noticed during the hospitalization. Patient also stated that he did not take he has daily dose of oxycodone yesterday. A drug withdrawal can potentially cause seizure activity. Troponin levels are now trending down and patient is asymptomatic. ? 11/19: Patient is still having very significant pain started on calcitonin nasal. No episodes of seizure no episodes of chest pain, being fitted with a TLSO brace. Patient is unable to tolerate lying flat in the MRI scanner again due to his compression fracture. Patient was evaluated by orthopedic surgery: ?He has a significant lumbar spine fracture with slight retropulsion. He appears to be neurologically stable without new deficit. He was having problems mobilizing and has severe back pain. I have recommended that he use his talus whenever he is out of bed in a chair and when he mobilizes. I would concur that he needs to go to rehab in order to work on mobilization and ambulation. He should use his brace on a full-time basis. He should get lumbar spine x-rays in 1-2 weeks for follow up. ? 11/20: Excruciating pain at this time curled up in a ball. No further seizures no episodes of chest pain 11/21: Pain is continues to escalate and be incapacitating also causing blood pressure to exceed 200. Regimen was adjusted with the addition of gabapentin and IV dexamethasone today hopefully we can get better control on this acute pain 11/22: The patient was feeling dramatically better and felt ready for discharge to shelter for ongoing rehabilitation and care. His partner Naomie was present at bedside and in agreement with this plan of care. No other issues arose. Outpatient heart monitoring, stress testing, and Cardiology in neurology consultation is advised. Close outpatient follow-up advised. Status at Discharge Cognitive/behavioral status at discharge: oriented Functional status at discharge: independent ambulation Overall status at discharge: patient is progressing back to baseline Time Spent with Patient Time spent: Greater than 30 minutes Exam Vital Signs (past 8 hours): - 11/22/24 08:00 Temperature 96.8 F L Pulse Rate 72 Respiratory Rate 16 Blood Pressure 111/65 Pulse Oximetry 97 Oxygen Flow Rate 0 Oxygen Delivery Method Room Air Oxygen Flow Rate 0 Narrative Exam Narrative: Well-developed male alert and appropriate, with only mild pain with movement HEENT unremarkable No labored respirations Abdomen benign Moves lower extremities without difficulty Objective ECG Impression: EKG 11/17/2024: Sinus rhythm with premature atrial complexes at 87 beats per minute Minimal voltage criteria for LVH, may be normal variant ( R in aVL ) Cannot rule out Anterior infarct , age undetermined Imaging *: Radiologist's impression: 1. Chest x-ray 11/18/2019 5: No acute cardiopulmonary abnormality is seen. 2. Head CT 11/17/2024: No acute intracranial pathology. 3. Abdomen pelvis CT 11/17/2024: L1 compression fracture, uncertain age but probably acute Cholelithiasis 4. Lumbar spine CT 11/17/2024: L1 compression fracture with retropulsed fracture fragment and mild to moderate central stenosis 5. Echocardiogram 11/17/2024: The left ventricle is normal in size and wall thickness. Left ventricular systolic function appears normal without focal wall motion abnormalities. The ejection fraction is estimated to be 55-60%. Grade I diastolic dysfunction with normal left atrial pressure. The right ventricle is normal in size and function. The right ventricular systolic pressure is estimated to be at least 45 mmHg based on an estimated right atrial pressure of 3 mm Hg. The left atrial size is normal. There is mild mitral regurgitation. There is mild to moderate tricuspid regurgitation. The ascending aorta is mild-moderately enlarged. Labs 11/18/24 06:05 11/19/24 04:33 [facility] Medical History At risk for prolonged QT interval syndrome Social History marital status: household members: significant other other: Retired Musician Smoking Status: Current some day smoker substance use type: marijuana, opiates and painkillers during the past year weight has: remained stable Type(s) of exercise: independent ambulation Discharge Plan Discharge Plan Patient Disposition: SNF Discharge orders & Medications Prescriptions: New methocarbamol 500 mg Tablet 750 mg PO Q6H PRN (Reason: pain) Qty: 20 0RF lisinopril 20 mg Tablet 20 mg PO DAILY Qty: 30 0RF aspirin 81 mg Tablet,Delayed Release (Dr/Ec) 81 mg PO DAILY Qty: 30 0RF calcitonin (salmon) 200 unit/actuation [place],Non-Aerosol 1 spray intranasal DAILY Qty: 3.7 0RF gabapentin 100 mg Capsule 100 mg PO TID Qty: 90 0RF metoprolol succinate 25 mg Tablet Extended Release 24 Hr 25 mg PO DAILY Qty: 30 0RF Continued atorvastatin 80 mg tablet 80 mg PO DAILY tamsulosin 0.4 mg capsule 0.8 mg PO DAILY omeprazole 20 mg capsule,delayed release(DR/EC) 20 mg PO DAILY oxycodone-acetaminophen 10-325 mg tablet 1 tab PO Q3H PRN (Reason: pain) Qty: 30 0RF Follow up/Referrals: Jak Razo MD [Primary Care Provider, Internal Medicine] Diet/Activity/Treatments Diet: Regular and Low-sodium Liquid consistency: Normal/Thin Food texture: Regular Visit Report/Discharge Packet Stand Alone Forms: Patient Portal/API Discharge Data Primary Care Provider: Jak Razo Quality VTE Deep Vein Thrombosis/Pulmonary Embolism Present on Admission: No MIPS - Admit I confirm the patient?s Advance Care Plan is present, Code status is documented, Surrogate decision maker is in patient?s record [If Yes, STOP here]: Yes MIPS - Meds 'Current medications' to include all prescriptions, [id number] products, herbals, cannabis/cannabidiol products, and vitamin/mineral/dietary (nutritional) supplements. I have utilized all available resources to obtain, update, or review the patient?s current medications. [If Yes, STOP here]: Yes MIPS - DC The patient has a history of heart transplant or Left Ventricular Assist Device (LVAD). If yes, STOP here.: No The patient has current or prior documentation of left ventricular ejection fraction (LVEF) less than or equal to 40%, or moderate or severely depressed left ventricular systolic function.: No A. The patient was prescribed or already taking an Angiotensin-Converting Enzyme (AURELIO) Inhibitor, or Angiotensin Receptor Amarjit (ARB).: Yes B. The patient was prescribed or already taking a beta-amarjit. [If Yes to Both A & B, STOP here]: Yes Patient not prescribed/taking AURELIO or ARB, no reason given.: No Patient not prescribed/taking beta-amarjit, no reason given.: No PROFEE Charge Codes Discharge inpatient/observation: [id number]
--- NOTE | 2024-11-23 09:05 | CM.DPNOTE ---
DC Note Late Entry Patient discharged to [facility] 8.1.25 via transport spanish moss picker at 1100. Emailed all SNF orders including signed med list, Rx and PASRR to Darcy in admissions. Patient and SO remained agreeable to plan. IMM had been reviewed and provided within 48 hours of discharge, 11/20 at 1315. KASI
== END 2024-11-22 11:22 | DRG 551 ==
LOC: ED 13:37 → AC 18:15
PROVIDERS: Admitting Provider Family Medicine; Emergency Provider Emergency Medicine; PCP Hospitalist; Referring Provider Emergency Medicine; Visit Provider Family Medicine
DX: S32.018A Other fracture of first lumbar vertebra, initial encounter for closed fracture (principal); I21.A1 Myocardial infarction type 2; N39.0 Urinary tract infection, site not specified; R56.9 Unspecified convulsions; F17.200 Nicotine dependence, unspecified, uncomplicated; G62.9 Polyneuropathy, unspecified; K21.9 Gastro-esophageal reflux disease without esophagitis; N40.0 Benign prostatic hyperplasia without lower urinary tract symptoms; G89.4 Chronic pain syndrome; X58.XXXA Exposure to other specified factors, initial encounter; Z85.51 Personal history of malignant neoplasm of bladder; Z79.891 Long term (current) use of opiate analgesic
CPT/HCPCS: 36415; 70450; 71045; 72131; 74177; 80048; 80053; 80061; 80305; 80320; 80329; 81001; 81003; 82140; 83605; 84146; 84443; 84484; 85025; 85610; 85730; 87077; 87086; 87186; 93005; 93306; 96361; 96365; 96375; 97116; 97161; 97165; 97530; 97535; 99284; 99291; G0480; J0696; J1100; J1171; J1650; J1885; J2405; J3010; Q9967

== ENCOUNTER → 2024-11-28 12:03 | Outpatient (CLI) | payer MEDICARE, MEDICAID, SELFPAY ==
[2024-11-17 19:19] VITALS: BMI 31.4
--- NOTE | 2024-11-28 12:13 | DI.RAD.S_ITS ---
PROCEDURE: XR T AND L SPINE 2 TO 3 VIEWS INDICATIONS: Wedge compression fracture of first lumbar vertebra, initial TECHNIQUE: 2 views acquired of the thoracolumbar spine. COMPARISON: [facility], CT, CT LUMBAR SPINE WO CON, 11/17/2024, 17:20. FINDINGS: Bones: Again noted is significant anterior wedge compression deformity involving L1 vertebral body with now up to 60% loss of L1 vertebral body height, further decreased compared to 11/17/2024 study. Mild retropulsion of L1 posterior wall is also seen. No other compression fracture or significant spondylolisthesis. Spondylitic changes are noted throughout lower thoracic and lumbar spine. Soft tissues: No suspicious soft tissue calcifications. IMPRESSION: There is interval further loss of L1 vertebral body height as above. No other compression fracture is seen in lower thoracic and lumbar spine. No significant spondylolisthesis. [id number] spondylitic changes throughout lower thoracic and lumbar spine. Dictated by: Jeffry Roberson M.D. on 11/28/2024 at 15:48 Approved by: Jeffry Roberson M.D. on 11/28/2024 at 15:51
== END ==
PROVIDERS: PCP Hospitalist; Referring Provider Orthopaedic Surgery; Visit Provider Orthopaedic Surgery
DX: S32.010A Wedge compression fracture of first lumbar vertebra, initial encounter for closed fracture (principal); X58.XXXA Exposure to other specified factors, initial encounter
CPT/HCPCS: 72082